=== PATIENT | female | born 1975 | race African-American/Black ===

== ENCOUNTER 2018-11-09 07:23 | Inpatient (IN) ==
[2018-11-09 08:24] LABS: Basophils % 0.5 % (0.0-0.8); Eosinophils % 0.3 % (0.00-10.9); Hematocrit 42.6 VOL% (35.7-47.0); Hemoglobin 13.7 GM/DL (12.0-16.0); Immature Granulocytes % 0.2 %; Immature Granulocytes Absolute 0.01 #; Lymphocytes # 0.5 10*3/uL (1.4-4.0); Lymphocytes % 7.9 % (21.3-54.2); Mean Corpuscular HGB Conc 32.2 GM/DL (32-36); Mean Corpuscular Hemoglobin 28 PG (27-34); Mean Corpuscular Volume 87.7 FL (87-102); Mean Platelet Volume 9.3 FL (9.6-12.0); Monocytes # 0.8 10*3/uL (0.11-0.8); Monocytes % 12.6 % (1.7-12.7); Neutrophils # 4.7 10*3/uL (1.4-7.4); Neutrophils % 78.5 % (38.7-73.9); Platelet Count 350 T/CUMM (130-400); Red Blood Count 4.86 MC/CUMM (3.8-5.5); Red Cell Distribution Width 17.5 % (9.3-17.3)
[2018-11-09] MEDS ORDERED: MUPIROCIN 2% OINT 22 GM TUBE TOP STA (08:28)
[2018-11-09 08:41] LABS: Bilirubin,Total 0.6 MG/DL (0.2-1.0); Calcium 8.7 MG/DL (8.5-10.1); Osmolality,Calculated 275.2 MOS/KG (273-304); Potassium 3.7 MMOL/L (3.5-5.1); Total Protein 7.5 G/DL (6.4-8.3)
[2018-11-09] MEDS ORDERED: MORPHINE 4 MG/1 ML VIAL IV STA (09:44)
[2018-11-09] MEDS ORDERED: ONDANSETRON 4 MG/2 ML VIAL IV STA (09:44)
[2018-11-09 11:09] LABS: Sedimentation Rate-Westergren 6 MM/HR (0-20)
[2018-11-09] MEDS ORDERED: ONDANSETRON 4 MG/2 ML VIAL IV PRN (15:11)
[2018-11-09] MEDS ORDERED: ACETAMINOPHEN 325 MG TABLET PO PRN (15:11)
[2018-11-09] MEDS ORDERED: INFLUENZA VIRUS VACCINE 0.5 ML SYRINGE IM ONE (17:26)
[2018-11-09] MEDS: METOPROLOL TARTRATE 25 MG TABLET PO SCH (20:53)
[2018-11-10 03:11] LABS: Basophils # 0.1 10*3/uL (0.0-0.2); Basophils % 0.9 % (0.0-0.8); Eosinophils % 0.2 % (0.00-10.9); Hematocrit 43.5 VOL% (35.7-47.0); Hemoglobin 13.6 GM/DL (12.0-16.0); Immature Granulocytes % 0.4 %; Immature Granulocytes Absolute 0.02 #; Lymphocytes # 0.4 10*3/uL (1.4-4.0); Lymphocytes % 7.1 % (21.3-54.2); Mean Corpuscular HGB Conc 31.3 GM/DL (32-36); Mean Corpuscular Hemoglobin 28 PG (27-34); Mean Corpuscular Volume 89.5 FL (87-102); Mean Platelet Volume 9.4 FL (9.6-12.0); Monocytes # 0.7 10*3/uL (0.11-0.8); Monocytes % 13.3 % (1.7-12.7); Neutrophils # 4.2 10*3/uL (1.4-7.4); Neutrophils % 78.1 % (38.7-73.9); Platelet Count 346 T/CUMM (130-400); Red Blood Count 4.86 MC/CUMM (3.8-5.5); Red Cell Distribution Width 17.4 % (9.3-17.3); White Blood Count 5.3 T/CUMM (4-12)
[2018-11-10 03:36] LABS: Albumin 2.9 G/DL (3.4-5.0); Bilirubin,Total 1.3 MG/DL (0.2-1.0); Osmolality,Calculated 275.1 MOS/KG (273-304); Potassium 4.2 MMOL/L (3.5-5.1); Risk Ratio 2.31; Thyroid Stimulating Hormone 2.25 uIU/ml (0.358-3.74); Total Protein 7.2 G/DL (6.4-8.3); VLDL CHOLESTEROL 8.6 MG/DL
[2018-11-10] MEDS: ASPIRIN CHEW 81 MG TABLET PO SCH (08:15)
[2018-11-10] MEDS: ENOXAPARIN 30 MG/0.3 ML SYRINGE SUBCUT SCH (08:15)
[2018-11-10] MEDS: METOPROLOL TARTRATE 25 MG TABLET PO SCH ×2 (08:15→20:19)
[2018-11-10] MEDS ORDERED: FUROSEMIDE 40 MG TABLET PO SCH (09:00)
[2018-11-10] MEDS: LISINOPRIL 2.5 MG TABLET PO SCH (11:45)
[2018-11-10] MEDS: COLLAGENASE OINT 30 GM TUBE TOP SCH (15:45)
[2018-11-10] MEDS: FUROSEMIDE 40 MG/4 ML VIAL IV SCH (16:57)
[2018-11-11 05:52] LABS: Basophils # 0.1 10*3/uL (0.0-0.2); Basophils % 1.3 % (0.0-0.8); Eosinophils % 0.4 % (0.00-10.9); Hematocrit 41.2 VOL% (35.7-47.0); Hemoglobin 13.3 GM/DL (12.0-16.0); Immature Granulocytes % 0.2 %; Immature Granulocytes Absolute 0.01 #; Lymphocytes # 0.6 10*3/uL (1.4-4.0); Lymphocytes % 12.2 % (21.3-54.2); Mean Corpuscular HGB Conc 32.3 GM/DL (32-36); Mean Corpuscular Hemoglobin 29 PG (27-34); Mean Corpuscular Volume 88.6 FL (87-102); Mean Platelet Volume 9.4 FL (9.6-12.0); Monocytes # 0.8 10*3/uL (0.11-0.8); Monocytes % 16.5 % (1.7-12.7); Neutrophils # 3.3 10*3/uL (1.4-7.4); Neutrophils % 69.4 % (38.7-73.9); Platelet Count 332 T/CUMM (130-400); Red Blood Count 4.65 MC/CUMM (3.8-5.5); Red Cell Distribution Width 17.6 % (9.3-17.3); White Blood Count 4.7 T/CUMM (4-12)
[2018-11-11 06:15] LABS: Albumin 2.7 G/DL (3.4-5.0); Bilirubin,Total 0.6 MG/DL (0.2-1.0); Calcium 8.2 MG/DL (8.5-10.1); Osmolality,Calculated 276.2 MOS/KG (273-304); Potassium 3.6 MMOL/L (3.5-5.1); Total Protein 6.5 G/DL (6.4-8.3)
[2018-11-11] MEDS ORDERED: VANCOMYCIN INJ 1,000 MG in SODIUM CHLORIDE 0.9% 250 ML IV SCH (08:00)
[2018-11-11] MEDS ORDERED: MORPHINE 4 MG/1 ML VIAL IV PRN (08:57)
[2018-11-11 09:17] LABS: Lymphocytes 5 % (20-55); Platelet Estimate Normal; Polychromasia Slight; Segmented Neutrophils 85 % (50-85); Total Cells Counted 100
[2018-11-11] MEDS: ASPIRIN CHEW 81 MG TABLET PO SCH (09:22)
[2018-11-11] MEDS: ISOSORBIDE DINITRATE 20 MG TABLET PO SCH ×3 (09:22→22:20)
[2018-11-11] MEDS: hydrALAZINE 25 MG TABLET PO SCH ×3 (09:22→22:19)
[2018-11-11] MEDS: LISINOPRIL 2.5 MG TABLET PO SCH (09:22)
[2018-11-11] MEDS: ENOXAPARIN 30 MG/0.3 ML SYRINGE SUBCUT SCH (09:22)
[2018-11-11] MEDS: cefTRIAXone 1,000 MG in SYRINGE 1 EACH IV SCH (09:23)
[2018-11-11] MEDS: METOPROLOL TARTRATE 25 MG TABLET PO SCH ×2 (09:23→22:20)
[2018-11-11] MEDS: FUROSEMIDE 40 MG/4 ML VIAL IV SCH ×2 (09:24→15:28)
[2018-11-11] MEDS: SILVER SULFADIAZINE 1% CREAM 25 GM TUBE TOP SCH (16:54)
[2018-11-11] MEDS: COLLAGENASE OINT 30 GM TUBE TOP SCH (16:54)
[2018-11-11] MEDS: VANCOMYCIN INJ 1,000 MG in SODIUM CHLORIDE 0.9% 250 ML IV SCH (20:42)
[2018-11-12 06:18] LABS: Basophils # 0.1 10*3/uL (0.0-0.2); Basophils % 1.2 % (0.0-0.8); Eosinophils % 0.7 % (0.00-10.9); Hematocrit 42.9 VOL% (35.7-47.0); Hemoglobin 13.6 GM/DL (12.0-16.0); Immature Granulocytes % 0.2 %; Immature Granulocytes Absolute 0.01 #; Lymphocytes # 0.5 10*3/uL (1.4-4.0); Lymphocytes % 11.2 % (21.3-54.2); Mean Corpuscular HGB Conc 31.7 GM/DL (32-36); Mean Corpuscular Hemoglobin 28 PG (27-34); Mean Corpuscular Volume 87.7 FL (87-102); Mean Platelet Volume 9.4 FL (9.6-12.0); Monocytes # 0.6 10*3/uL (0.11-0.8); Neutrophils # 2.9 10*3/uL (1.4-7.4); Neutrophils % 71.7 % (38.7-73.9); Platelet Count 365 T/CUMM (130-400); Red Blood Count 4.89 MC/CUMM (3.8-5.5); Red Cell Distribution Width 17.7 % (9.3-17.3)
[2018-11-12 06:39] LABS: Albumin 2.6 G/DL (3.4-5.0); Bilirubin,Total 0.7 MG/DL (0.2-1.0); Calcium 8.4 MG/DL (8.5-10.1); Osmolality,Calculated 275.8 MOS/KG (273-304); Potassium 3.5 MMOL/L (3.5-5.1); Total Protein 6.8 G/DL (6.4-8.3)
[2018-11-12] MEDS ORDERED: MAGNESIUM SULF RIDER 4 GM in PREMIX 1 EACH IV PRN (07:41)
[2018-11-12] MEDS ORDERED: MAGNESIUM SULF RIDER 2 GM in PREMIX 1 EACH IV PRN (07:41)
[2018-11-12] MEDS: ENOXAPARIN 40 MG/0.4 ML SYRINGE SUBCUT SCH (09:13)
[2018-11-12] MEDS: METOPROLOL TARTRATE 25 MG TABLET PO SCH ×3 (09:14→20:54)
[2018-11-12] MEDS: ISOSORBIDE DINITRATE 20 MG TABLET PO SCH ×3 (09:14→20:54)
[2018-11-12] MEDS: hydrALAZINE 25 MG TABLET PO SCH ×3 (09:14→20:54)
[2018-11-12] MEDS: LISINOPRIL 2.5 MG TABLET PO SCH (09:14)
[2018-11-12] MEDS: ASPIRIN CHEW 81 MG TABLET PO SCH (09:14)
[2018-11-12] MEDS: cefTRIAXone 1,000 MG in SYRINGE 1 EACH IV SCH (09:14)
[2018-11-12] MEDS: VANCOMYCIN INJ 1,000 MG in SODIUM CHLORIDE 0.9% 250 ML IV SCH (09:15)
[2018-11-12] MEDS: FUROSEMIDE 40 MG/4 ML VIAL IV SCH ×2 (09:15→15:13)
[2018-11-12] MEDS: SILVER SULFADIAZINE 1% CREAM 25 GM TUBE TOP SCH (14:57)
[2018-11-12] MEDS: COLLAGENASE OINT 30 GM TUBE TOP SCH (14:57)
[2018-11-12] MEDS: DOXYCYCLINE HYCLATE INJ 100 MG in SODIUM CHLORIDE 0.9% 100 ML IV SCH (17:45)
[2018-11-13] MEDS: DOXYCYCLINE HYCLATE INJ 100 MG in SODIUM CHLORIDE 0.9% 100 ML IV SCH (04:28)
[2018-11-13 05:49] LABS: Basophils # 0.1 10*3/uL (0.0-0.2); Basophils % 1.4 % (0.0-0.8); Eosinophils % 0.9 % (0.00-10.9); Hematocrit 39.4 VOL% (35.7-47.0); Hemoglobin 12.6 GM/DL (12.0-16.0); Immature Granulocytes % 0.2 %; Immature Granulocytes Absolute 0.01 #; Lymphocytes # 0.6 10*3/uL (1.4-4.0); Lymphocytes % 12.7 % (21.3-54.2); Mean Corpuscular Hemoglobin 28 PG (27-34); Mean Corpuscular Volume 88.1 FL (87-102); Monocytes # 0.8 10*3/uL (0.11-0.8); Neutrophils # 2.8 10*3/uL (1.4-7.4); Neutrophils % 65.8 % (38.7-73.9); Platelet Count 324 T/CUMM (130-400); Red Blood Count 4.47 MC/CUMM (3.8-5.5); Red Cell Distribution Width 17.5 % (9.3-17.3); White Blood Count 4.3 T/CUMM (4-12)
[2018-11-13 06:14] LABS: Calcium 8.1 MG/DL (8.5-10.1); Osmolality,Calculated 275.8 MOS/KG (273-304); Potassium 3.4 MMOL/L (3.5-5.1)
[2018-11-13 06:32] LABS: Anisocytosis 1+; Band Neutrophils 6 % (0-10); Eosinophils 1 % (0-10); Hypochromasia 1+; Lymphocytes 10 % (20-55); Segmented Neutrophils 72 % (50-85); Target Cells 1+; Total Cells Counted 100
[2018-11-13 06:33] LABS: Platelet Estimate Adequate
[2018-11-13] MEDS ORDERED: POTASSIUM CHLORIDE 20 MEQ TABLET PO PRN (07:27)
[2018-11-13] MEDS: FUROSEMIDE 40 MG/4 ML VIAL IV SCH ×2 (08:59→15:23)
[2018-11-13] MEDS: ISOSORBIDE DINITRATE 20 MG TABLET PO SCH ×2 (08:59→14:42)
[2018-11-13] MEDS: ENOXAPARIN 40 MG/0.4 ML SYRINGE SUBCUT SCH (08:59)
[2018-11-13] MEDS: hydrALAZINE 25 MG TABLET PO SCH ×2 (09:00→14:42)
[2018-11-13] MEDS: ASPIRIN CHEW 81 MG TABLET PO SCH (09:00)
[2018-11-13] MEDS: LISINOPRIL 2.5 MG TABLET PO SCH (09:00)
[2018-11-13] MEDS: METOPROLOL TARTRATE 25 MG TABLET PO SCH ×2 (09:00→14:42)
[2018-11-13] MEDS: COLLAGENASE OINT 30 GM TUBE TOP SCH (09:07)
[2018-11-13] MEDS: SILVER SULFADIAZINE 1% CREAM 25 GM TUBE TOP SCH (09:10)
[2018-11-13] MEDS ORDERED: POTASSIUM CHLORIDE 20 MEQ TABLET PO ONE (09:39)
[2018-11-13 11:56] VITALS: BP 94/71
== END 2018-11-13 15:56 | disposition home health service (06) | DRG 197 ==
LOC: N.ED 07:23 → N.EDINP 15:09 → SUATTDRO 15:09 → N.EDINP 17:00 → N.3E 17:17 → N.2E 11-10 18:25
PROVIDERS: ADMIT Internal Medicine; ATTEND Internal Medicine

== ENCOUNTER 2018-11-28 03:16 | Inpatient (IN) ==
[2018-11-28] MEDS ORDERED: FUROSEMIDE 40 MG/4 ML VIAL IV STA (04:02)
[2018-11-28 04:09] LABS: INR 1.1; PT Patient Result 11.9 SECS
[2018-11-28] MEDS ORDERED: SILVER SULFADIAZINE 1% CREAM 400 GM JAR TOP ONE (04:10)
[2018-11-28 04:11] LABS: Basophils # 0.1 10*3/uL (0.0-0.2); Basophils % 2.1 % (0.0-0.8); Eosinophils % 0.8 % (0.00-10.9); Hematocrit 42.3 VOL% (35.7-47.0); Hemoglobin 13.3 GM/DL (12.0-16.0); Immature Granulocytes % 0.4 %; Immature Granulocytes Absolute 0.02 #; Lymphocytes # 0.7 10*3/uL (1.4-4.0); Mean Corpuscular HGB Conc 31.4 GM/DL (32-36); Mean Corpuscular Hemoglobin 28 PG (27-34); Mean Corpuscular Volume 90.2 FL (87-102); Mean Platelet Volume 9.5 FL (9.6-12.0); Monocytes # 0.8 10*3/uL (0.11-0.8); Monocytes % 15.9 % (1.7-12.7); Neutrophils # 3.5 10*3/uL (1.4-7.4); Neutrophils % 67.8 % (38.7-73.9); Platelet Count 381 T/CUMM (130-400); Red Blood Count 4.69 MC/CUMM (3.8-5.5); Red Cell Distribution Width 16.6 % (9.3-17.3); White Blood Count 5.2 T/CUMM (4-12)
[2018-11-28] MEDS ORDERED: SILVER SULFADIAZINE 1% CREAM 25 GM TUBE TOP STA (04:13)
[2018-11-28 04:25] LABS: Albumin 3.1 G/DL (3.4-5.0); Calcium 9.1 MG/DL (8.5-10.1); Osmolality,Calculated 284.3 MOS/KG (273-304); Potassium 3.8 MMOL/L (3.5-5.1); Total Protein 7.2 G/DL (6.4-8.3)
[2018-11-28] MEDS ORDERED: MORPHINE 4 MG/1 ML VIAL IV STA (04:31)
[2018-11-28] MEDS ORDERED: MORPHINE 4 MG/1 ML VIAL ONE (04:32)
[2018-11-28 05:08] LABS: Apearance,Urine Slightly Hazy (Clear); Bacteria,Urine Occasional /HPF (Few); Bilirubin,Urine Negative (Negative); Blood, Urine Negative (Negative); Glucose,Urine (UA) Negative (Negative); Ketones,Urine Negative (Negative); Mucus,Urine Occasional /LPF (Occasional); Nitrite,Urine Negative (Negative); Protein,Urine 100 MG/DL; RBC,Urine 2 /HPF (0-4); Squamous Epithelial Cell,Urine Few /HPF (0-10); Urine Color Yellow (Yellow); Urine Specific Gravity 1.019 (1.001-1.035); WBC,Urine 1 /HPF (0-6)
[2018-11-28 06:27] LABS: Hypochromasia 1+; Lymphocytes 15 % (20-55); Platelet Estimate Adequate; Segmented Neutrophils 67 % (50-85); Total Cells Counted 100
[2018-11-28] MEDS ORDERED: ONDANSETRON 4 MG/2 ML VIAL IV PRN (06:43)
[2018-11-28] MEDS ORDERED: ACETAMINOPHEN 325 MG TABLET PO PRN (06:43)
[2018-11-28] MEDS ORDERED: METOPROLOL TARTRATE 5 MG/5 ML VIAL IV PRN (06:45)
[2018-11-28] MEDS: FUROSEMIDE 40 MG/4 ML VIAL IV SCH ×2 (07:48→16:39)
[2018-11-28] MEDS: ENOXAPARIN 40 MG/0.4 ML SYRINGE SUBCUT SCH (07:49)
[2018-11-28] MEDS: ASPIRIN CHEW 81 MG TABLET PO SCH ×2 (07:52→11:47)
[2018-11-28] MEDS: POTASSIUM CHLORIDE 20 MEQ TABLET PO SCH ×2 (07:52→11:48)
[2018-11-28] MEDS: LISINOPRIL 2.5 MG TABLET PO SCH ×2 (07:52→11:48)
[2018-11-28] MEDS: METOPROLOL TARTRATE 25 MG TABLET PO SCH ×3 (08:02→21:44)
[2018-11-28 08:22] LABS: CKMB % 3.2 %; Troponin I 0.027 NG/ML (0.00-0.045)
[2018-11-28] MEDS ORDERED: hydrALAZINE 25 MG TABLET PO SCH (09:00)
[2018-11-28] MEDS ORDERED: ISOSORBIDE DINITRATE 20 MG TABLET PO SCH (09:00)
[2018-11-28] MEDS ORDERED: POTASSIUM CHLORIDE 20 MEQ TABLET PO ONE (13:36)
[2018-11-28] MEDS ORDERED: MAGNESIUM SULF RIDER 2 GM in PREMIX 1 EACH IV PRN (13:36)
[2018-11-28] MEDS ORDERED: MAGNESIUM SULF RIDER 4 GM in PREMIX 1 EACH IV PRN (13:36)
[2018-11-28 14:03] LABS: HIV Antigen/Antibody Result Nonreactive (Nonreactive)
[2018-11-28] MEDS: SPIRONOLACTONE 25 MG TABLET PO SCH (14:23)
[2018-11-28] MEDS: SERTRALINE 25 MG TABLET PO SCH (14:25)
[2018-11-28 15:15] LABS: CKMB % 3.3 %; Troponin I 0.019 NG/ML (0.00-0.045)
[2018-11-28] MEDS: AMPICILLIN/SULBACTAM 3,000 MG in SODIUM CHLORIDE 0.9% 100 ML IV SCH ×3 (16:40→23:45)
[2018-11-29] MEDS: AMPICILLIN/SULBACTAM 3,000 MG in SODIUM CHLORIDE 0.9% 100 ML IV SCH ×5 (02:20→22:08)
[2018-11-29 03:35] LABS: Basophils # 0.1 10*3/uL (0.0-0.2); Basophils % 2.5 % (0.0-0.8); Eosinophils % 0.9 % (0.00-10.9); Hematocrit 41.3 VOL% (35.7-47.0); Hemoglobin 12.9 GM/DL (12.0-16.0); Immature Granulocytes % 0.5 %; Immature Granulocytes Absolute 0.02 #; Lymphocytes # 0.6 10*3/uL (1.4-4.0); Lymphocytes % 12.8 % (21.3-54.2); Mean Corpuscular HGB Conc 31.2 GM/DL (32-36); Mean Corpuscular Hemoglobin 28 PG (27-34); Mean Corpuscular Volume 90.2 FL (87-102); Mean Platelet Volume 9.8 FL (9.6-12.0); Monocytes # 0.8 10*3/uL (0.11-0.8); Neutrophils # 2.9 10*3/uL (1.4-7.4); Neutrophils % 65.3 % (38.7-73.9); Platelet Count 371 T/CUMM (130-400); Red Blood Count 4.58 MC/CUMM (3.8-5.5); Red Cell Distribution Width 16.8 % (9.3-17.3); White Blood Count 4.4 T/CUMM (4-12)
[2018-11-29 04:01] LABS: Eosinophils 2 % (0-10); Lymphocytes 13 % (20-55); Platelet Estimate Decreased; Segmented Neutrophils 77 % (50-85); Total Cells Counted 100
[2018-11-29 04:02] LABS: Polychromasia Few
[2018-11-29 04:15] LABS: Albumin 2.9 G/DL (3.4-5.0); Bilirubin,Total 1.5 MG/DL (0.2-1.0); Calcium 8.6 MG/DL (8.5-10.1); Osmolality,Calculated 277.7 MOS/KG (273-304); Thyroid Stimulating Hormone 1.8 uIU/ml (0.358-3.74); Total Protein 7.3 G/DL (6.4-8.3)
[2018-11-29] MEDS: SPIRONOLACTONE 25 MG TABLET PO SCH (08:38)
[2018-11-29] MEDS: METOPROLOL SUCCINATE XL 25 MG TABLET PO SCH (08:38)
[2018-11-29] MEDS: SERTRALINE 25 MG TABLET PO SCH (08:38)
[2018-11-29] MEDS: POTASSIUM CHLORIDE 20 MEQ TABLET PO SCH (08:39)
[2018-11-29] MEDS: LISINOPRIL 2.5 MG TABLET PO SCH (08:39)
[2018-11-29] MEDS: ASPIRIN EC 81 MG TABLET PO SCH (08:39)
[2018-11-29] MEDS: FUROSEMIDE 40 MG/4 ML VIAL IV SCH ×2 (08:40→16:29)
[2018-11-29] MEDS: ENOXAPARIN 40 MG/0.4 ML SYRINGE SUBCUT SCH (08:47)
[2018-11-29] MEDS: CLOTRIMAZOLE/BETAMETHASONE CREAM 15 GM TUBE TOP SCH ×2 (16:33→22:09)
[2018-11-29] MEDS: SACUBITRIL/VALSARTAN 49-51 MG TABLET PO SCH (22:09)
[2018-11-30] MEDS: AMPICILLIN/SULBACTAM 3,000 MG in SODIUM CHLORIDE 0.9% 100 ML IV SCH ×4 (03:38→21:23)
[2018-11-30 03:54] LABS: Basophils # 0.1 10*3/uL (0.0-0.2); Eosinophils % 1.2 % (0.00-10.9); Hematocrit 41.3 VOL% (35.7-47.0); Hemoglobin 13.1 GM/DL (12.0-16.0); Immature Granulocytes % 0.3 %; Immature Granulocytes Absolute 0.01 #; Lymphocytes # 0.5 10*3/uL (1.4-4.0); Lymphocytes % 15.5 % (21.3-54.2); Mean Corpuscular HGB Conc 31.7 GM/DL (32-36); Mean Corpuscular Hemoglobin 28 PG (27-34); Mean Platelet Volume 10.1 FL (9.6-12.0); Monocytes # 0.5 10*3/uL (0.11-0.8); Monocytes % 14.3 % (1.7-12.7); Neutrophils # 2.2 10*3/uL (1.4-7.4); Neutrophils % 65.7 % (38.7-73.9); Platelet Count 371 T/CUMM (130-400); Red Blood Count 4.64 MC/CUMM (3.8-5.5); Red Cell Distribution Width 16.5 % (9.3-17.3); White Blood Count 3.3 T/CUMM (4-12)
[2018-11-30 04:13] LABS: Calcium 8.5 MG/DL (8.5-10.1); Osmolality,Calculated 279.7 MOS/KG (273-304); Potassium 3.7 MMOL/L (3.5-5.1)
[2018-11-30 04:15] LABS: Calcium 9.3 MG/DL (8.5-10.1); Osmolality,Calculated 280.5 MOS/KG (273-304); Potassium 4.1 MMOL/L (3.5-5.1)
[2018-11-30 05:00] LABS: Band Neutrophils 1 % (0-10); Eosinophils 1 % (0-10); Hypochromasia 1+; Lymphocytes 12 % (20-55); Platelet Estimate Adequate; Segmented Neutrophils 74 % (50-85); Total Cells Counted 100
[2018-11-30] MEDS ORDERED: FUROSEMIDE 40 MG/4 ML VIAL IV SCH (08:41)
[2018-11-30] MEDS: SPIRONOLACTONE 25 MG TABLET PO SCH (08:56)
[2018-11-30] MEDS: METOPROLOL SUCCINATE XL 25 MG TABLET PO SCH (08:59)
[2018-11-30] MEDS: FUROSEMIDE 40 MG/4 ML VIAL IV SCH (09:00)
[2018-11-30] MEDS: SACUBITRIL/VALSARTAN 49-51 MG TABLET PO SCH ×2 (09:02→21:27)
[2018-11-30] MEDS: POTASSIUM CHLORIDE 20 MEQ TABLET PO SCH (09:02)
[2018-11-30] MEDS: ENOXAPARIN 40 MG/0.4 ML SYRINGE SUBCUT SCH (09:02)
[2018-11-30] MEDS: SERTRALINE 25 MG TABLET PO SCH (09:02)
[2018-11-30] MEDS: ASPIRIN EC 81 MG TABLET PO SCH (09:02)
[2018-11-30] MEDS: CLOTRIMAZOLE/BETAMETHASONE CREAM 15 GM TUBE TOP SCH ×2 (09:03→21:30)
[2018-11-30] MEDS ORDERED: CARVEDILOL 3.125 MG TABLET PO SCH (14:00)
[2018-11-30] MEDS ORDERED: FUROSEMIDE 20 MG/2 ML VIAL IV ONE (16:00)
[2018-12-01] MEDS: AMPICILLIN/SULBACTAM 3,000 MG in SODIUM CHLORIDE 0.9% 100 ML IV SCH ×2 (03:06→09:00)
[2018-12-01 03:15] LABS: Basophils # 0.1 10*3/uL (0.0-0.2); Basophils % 2.4 % (0.0-0.8); Eosinophils # 0.1 10*3/uL (0.0-0.87); Eosinophils % 2.6 % (0.00-10.9); Hematocrit 41.8 VOL% (35.7-47.0); Immature Granulocytes % 0.3 %; Immature Granulocytes Absolute 0.01 #; Lymphocytes # 0.6 10*3/uL (1.4-4.0); Lymphocytes % 15.1 % (21.3-54.2); Mean Corpuscular HGB Conc 31.1 GM/DL (32-36); Mean Corpuscular Hemoglobin 28 PG (27-34); Mean Corpuscular Volume 89.1 FL (87-102); Mean Platelet Volume 9.8 FL (9.6-12.0); Monocytes # 0.6 10*3/uL (0.11-0.8); Monocytes % 16.4 % (1.7-12.7); Neutrophils # 2.4 10*3/uL (1.4-7.4); Neutrophils % 63.2 % (38.7-73.9); Platelet Count 400 T/CUMM (130-400); Red Blood Count 4.69 MC/CUMM (3.8-5.5); Red Cell Distribution Width 16.5 % (9.3-17.3); White Blood Count 3.8 T/CUMM (4-12)
[2018-12-01 03:24] LABS: Calcium 8.2 MG/DL (8.5-10.1); Osmolality,Calculated 283.3 MOS/KG (273-304); Potassium 3.6 MMOL/L (3.5-5.1)
[2018-12-01 04:42] LABS: Anisocytosis Slight; Band Neutrophils 8 % (0-10); Eosinophils 2 % (0-10); Lymphocytes 13 % (20-55); Macrocytosis Slight; Platelet Estimate Normal; Segmented Neutrophils 61 % (50-85); Total Cells Counted 100
[2018-12-01 08:27] VITALS: BP 134/82
[2018-12-01] MEDS ORDERED: FUROSEMIDE 40 MG/4 ML VIAL IV SCH (09:00)
[2018-12-01] MEDS ORDERED: FUROSEMIDE 40 MG TABLET PO SCH (09:00)
[2018-12-01] MEDS ORDERED: BISOPROLOL 5 MG TABLET PO SCH (09:00)
[2018-12-01] MEDS: ENOXAPARIN 40 MG/0.4 ML SYRINGE SUBCUT SCH (09:03)
[2018-12-01] MEDS: ASPIRIN EC 81 MG TABLET PO SCH (09:03)
[2018-12-01] MEDS: POTASSIUM CHLORIDE 20 MEQ TABLET PO SCH (09:03)
[2018-12-01] MEDS: SERTRALINE 25 MG TABLET PO SCH (09:03)
[2018-12-01] MEDS: SACUBITRIL/VALSARTAN 49-51 MG TABLET PO SCH (09:03)
[2018-12-01] MEDS: CLOTRIMAZOLE/BETAMETHASONE CREAM 15 GM TUBE TOP SCH (09:04)
== END 2018-12-01 13:00 | disposition home health service (06) | DRG 194 ==
LOC: N.ED 03:16 → N.EDINP 06:18 → N.TELES 06:46
PROVIDERS: ADMIT Internal Medicine; ATTEND Internal Medicine

== ENCOUNTER 2018-12-09 07:41 | Inpatient (IN) ==
[2018-12-09 09:52] LABS: Basophils # 0.1 10*3/uL (0.0-0.2); Eosinophils # 0.1 10*3/uL (0.0-0.87); Hematocrit 45.7 VOL% (35.7-47.0); Hemoglobin 14.3 GM/DL (12.0-16.0); Immature Granulocytes % 0.6 %; Immature Granulocytes Absolute 0.03 #; Lymphocytes # 0.6 10*3/uL (1.4-4.0); Lymphocytes % 11.9 % (21.3-54.2); Mean Corpuscular HGB Conc 31.3 GM/DL (32-36); Mean Corpuscular Hemoglobin 28 PG (27-34); Mean Corpuscular Volume 89.3 FL (87-102); Mean Platelet Volume 10.7 FL (9.6-12.0); Monocytes # 0.8 10*3/uL (0.11-0.8); Monocytes % 15.3 % (1.7-12.7); Neutrophils # 3.5 10*3/uL (1.4-7.4); Neutrophils % 69.2 % (38.7-73.9); Platelet Count 372 T/CUMM (130-400); Red Blood Count 5.12 MC/CUMM (3.8-5.5); Red Cell Distribution Width 16.5 % (9.3-17.3)
[2018-12-09 09:57] LABS: INR 1.2; PT Patient Result 13.4 SECS
[2018-12-09] MEDS ORDERED: ALBUTEROL/IPRATROPIUM 3 ML NEB RESP TX STA (10:02)
[2018-12-09] MEDS ORDERED: FUROSEMIDE 100 MG/10 ML VIAL IV STA (10:02)
[2018-12-09 10:05] LABS: Bilirubin,Total 0.7 MG/DL (0.2-1.0); Calcium 9.1 MG/DL (8.5-10.1); Osmolality,Calculated 284.4 MOS/KG (273-304); Potassium 4.2 MMOL/L (3.5-5.1); Total Protein 7.3 G/DL (6.4-8.3)
[2018-12-09] MEDS ORDERED: ONDANSETRON 4 MG/2 ML VIAL IV STA (10:50)
[2018-12-09] MEDS ORDERED: MORPHINE 4 MG/1 ML VIAL IV STA (10:50)
[2018-12-09] MEDS ORDERED: ONDANSETRON 4 MG/2 ML VIAL ONE (10:51)
[2018-12-09] MEDS ORDERED: FUROSEMIDE 40 MG/4 ML VIAL ONE (10:51)
[2018-12-09] MEDS ORDERED: MORPHINE 4 MG/1 ML VIAL ONE (10:52)
[2018-12-09] MEDS ORDERED: guaiFENesin/DM ER 600-30 MG TABLET PO PRN (13:14)
[2018-12-09] MEDS ORDERED: ONDANSETRON 4 MG/2 ML VIAL IV PRN (13:14)
[2018-12-09] MEDS ORDERED: BISACODYL 5 MG TABLET PO PRN (13:14)
[2018-12-09] MEDS ORDERED: POTASSIUM CHLORIDE 20 MEQ TABLET PO PRN (13:23)
[2018-12-09] MEDS: ALBUTEROL/IPRATROPIUM 3 ML NEB RESP TX SCH ×3 (16:44→23:35)
[2018-12-09 16:51] LABS: Pt O2 Delivery Device Room Air
[2018-12-09 17:19] LABS: ABG Base Excess -4.5 MMOL/L (-2.5-2.5); ABG Oxygen Saturation 66.3 % (95-100); ABG PCO2 39.8 MM HG (35-48); ABG PH 7.333 (7.35-7.45); ABG TCO2 18.1 MMOL/L (23-27)
[2018-12-09 17:25] LABS: ABG PO2 36.5 MM HG (80-95)
[2018-12-09] MEDS: FUROSEMIDE 40 MG/4 ML VIAL IV SCH (17:33)
[2018-12-09] MEDS: PIPERACILLIN/TAZOBACTAM 3,375 MG in SODIUM CHLORIDE 0.9% 100 ML IV SCH (17:33)
[2018-12-09 21:20] LABS: Allen Test Positive
[2018-12-09 21:24] LABS: ABG Base Excess -3.7 MMOL/L (-2.5-2.5); ABG HCO3 22.6 MMOL/L (20-26); ABG Oxygen Saturation 88.4 % (95-100); ABG PCO2 45.6 MM HG (35-48); ABG PH 7.313 (7.35-7.45); ABG PO2 62.2 MM HG (80-95)
[2018-12-09] MEDS: ENOXAPARIN 40 MG/0.4 ML SYRINGE SUBCUT SCH (22:38)
[2018-12-09] MEDS: VANCOMYCIN INJ 1,000 MG in SODIUM CHLORIDE 0.9% 250 ML IV SCH (22:39)
[2018-12-10] MEDS: PIPERACILLIN/TAZOBACTAM 3,375 MG in SODIUM CHLORIDE 0.9% 100 ML IV SCH ×3 (01:18→17:51)
[2018-12-10] MEDS: ALBUTEROL/IPRATROPIUM 3 ML NEB RESP TX SCH ×6 (03:10→22:53)
[2018-12-10 05:48] LABS: Calcium 9.3 MG/DL (8.5-10.1); Osmolality,Calculated 281.5 MOS/KG (273-304); Potassium 4.6 MMOL/L (3.5-5.1)
[2018-12-10 05:55] LABS: Basophils # 0.1 10*3/uL (0.0-0.2); Basophils % 1.4 % (0.0-0.8); Eosinophils # 0.1 10*3/uL (0.0-0.87); Eosinophils % 0.9 % (0.00-10.9); Hematocrit 44.5 VOL% (35.7-47.0); Hemoglobin 13.5 GM/DL (12.0-16.0); Immature Granulocytes % 0.5 %; Immature Granulocytes Absolute 0.03 #; Lymphocytes # 0.7 10*3/uL (1.4-4.0); Lymphocytes % 10.4 % (21.3-54.2); Mean Corpuscular HGB Conc 30.3 GM/DL (32-36); Mean Corpuscular Hemoglobin 28 PG (27-34); Mean Corpuscular Volume 92.9 FL (87-102); Mean Platelet Volume 10.6 FL (9.6-12.0); Monocytes % 15.7 % (1.7-12.7); Neutrophils # 4.5 10*3/uL (1.4-7.4); Neutrophils % 71.1 % (38.7-73.9); Platelet Count 315 T/CUMM (130-400); Red Blood Count 4.79 MC/CUMM (3.8-5.5); Red Cell Distribution Width 16.5 % (9.3-17.3); White Blood Count 6.3 T/CUMM (4-12)
[2018-12-10 06:25] LABS: Hypochromasia 1+; Lymphocytes 12 % (20-55); Ovalocytes Slight; Platelet Estimate Adequate; Segmented Neutrophils 74 % (50-85); Total Cells Counted 100
[2018-12-10] MEDS: PANTOPRAZOLE 40 MG TABLET PO SCH (08:18)
[2018-12-10] MEDS: FUROSEMIDE 40 MG/4 ML VIAL IV SCH ×2 (08:19→17:52)
[2018-12-10] MEDS: VANCOMYCIN INJ 1,000 MG in SODIUM CHLORIDE 0.9% 250 ML IV SCH (11:33)
[2018-12-10] MEDS ORDERED: BISOPROLOL 5 MG TABLET PO SCH (13:00)
[2018-12-10] MEDS: ASPIRIN EC 81 MG TABLET PO SCH (13:31)
[2018-12-10] MEDS: SPIRONOLACTONE 25 MG TABLET PO SCH (17:52)
[2018-12-11] MEDS: SACUBITRIL/VALSARTAN 49-51 MG TABLET PO SCH ×3 (00:12→23:02)
[2018-12-11] MEDS: ENOXAPARIN 40 MG/0.4 ML SYRINGE SUBCUT SCH ×2 (00:12→23:02)
[2018-12-11] MEDS: SERTRALINE 25 MG TABLET PO SCH ×2 (00:12→23:02)
[2018-12-11] MEDS: VANCOMYCIN INJ 1,000 MG in SODIUM CHLORIDE 0.9% 250 ML IV SCH ×2 (00:49→09:27)
[2018-12-11] MEDS: ALBUTEROL/IPRATROPIUM 3 ML NEB RESP TX SCH ×5 (02:52→20:27)
[2018-12-11] MEDS: PIPERACILLIN/TAZOBACTAM 3,375 MG in SODIUM CHLORIDE 0.9% 100 ML IV SCH ×3 (04:00→23:01)
[2018-12-11] MEDS: ACETAMINOPHEN 325 MG TABLET PO PRN (05:50)
[2018-12-11 06:04] LABS: Basophils # 0.1 10*3/uL (0.0-0.2); Basophils % 1.6 % (0.0-0.8); Eosinophils # 0.1 10*3/uL (0.0-0.87); Eosinophils % 0.8 % (0.00-10.9); Hematocrit 42.2 VOL% (35.7-47.0); Hemoglobin 12.9 GM/DL (12.0-16.0); Immature Granulocytes % 0.2 %; Immature Granulocytes Absolute 0.01 #; Lymphocytes # 0.7 10*3/uL (1.4-4.0); Lymphocytes % 10.7 % (21.3-54.2); Mean Corpuscular HGB Conc 30.6 GM/DL (32-36); Mean Corpuscular Hemoglobin 28 PG (27-34); Mean Corpuscular Volume 92.3 FL (87-102); Mean Platelet Volume 10.6 FL (9.6-12.0); Monocytes # 1.1 10*3/uL (0.11-0.8); Neutrophils # 4.2 10*3/uL (1.4-7.4); Neutrophils % 68.7 % (38.7-73.9); Platelet Count 277 T/CUMM (130-400); Red Blood Count 4.57 MC/CUMM (3.8-5.5); Red Cell Distribution Width 16.6 % (9.3-17.3); White Blood Count 6.2 T/CUMM (4-12)
[2018-12-11 06:20] LABS: Calcium 8.4 MG/DL (8.5-10.1); Potassium 4.8 MMOL/L (3.5-5.1)
[2018-12-11 07:03] LABS: Eosinophils 3 % (0-10); Hypochromasia 1+; Lymphocytes 8 % (20-55); Platelet Estimate Adequate; Segmented Neutrophils 77 % (50-85); Total Cells Counted 100
[2018-12-11] MEDS ORDERED: ESCITALOPRAM 10 MG TABLET PO SCH (09:00)
[2018-12-11] MEDS: SPIRONOLACTONE 25 MG TABLET PO SCH (09:25)
[2018-12-11] MEDS: METOPROLOL SUCCINATE XL 25 MG TABLET PO SCH (09:25)
[2018-12-11] MEDS: ASPIRIN EC 81 MG TABLET PO SCH (09:25)
[2018-12-11] MEDS: PANTOPRAZOLE 40 MG TABLET PO SCH (09:25)
[2018-12-11] MEDS: VENLAFAXINE 37.5 MG TABLET PO SCH (09:25)
[2018-12-11] MEDS: FUROSEMIDE 40 MG/4 ML VIAL IV SCH ×2 (09:27→16:21)
[2018-12-12] MEDS: ALBUTEROL/IPRATROPIUM 3 ML NEB RESP TX SCH ×6 (00:26→20:08)
[2018-12-12 05:06] LABS: Basophils # 0.1 10*3/uL (0.0-0.2); Basophils % 2.3 % (0.0-0.8); Eosinophils # 0.1 10*3/uL (0.0-0.87); Eosinophils % 0.9 % (0.00-10.9); Hemoglobin 13.3 GM/DL (12.0-16.0); Immature Granulocytes % 0.2 %; Immature Granulocytes Absolute 0.01 #; Lymphocytes # 0.5 10*3/uL (1.4-4.0); Lymphocytes % 9.2 % (21.3-54.2); Mean Corpuscular HGB Conc 30.9 GM/DL (32-36); Mean Corpuscular Hemoglobin 28 PG (27-34); Mean Corpuscular Volume 90.9 FL (87-102); Mean Platelet Volume 10.6 FL (9.6-12.0); Monocytes # 1.1 10*3/uL (0.11-0.8); Monocytes % 18.6 % (1.7-12.7); Neutrophils # 3.9 10*3/uL (1.4-7.4); Neutrophils % 68.8 % (38.7-73.9); Platelet Count 282 T/CUMM (130-400); Red Blood Count 4.73 MC/CUMM (3.8-5.5); Red Cell Distribution Width 16.6 % (9.3-17.3); White Blood Count 5.6 T/CUMM (4-12)
[2018-12-12 05:34] LABS: Calcium 8.3 MG/DL (8.5-10.1); Osmolality,Calculated 280.8 MOS/KG (273-304); Potassium 4.8 MMOL/L (3.5-5.1)
[2018-12-12 05:43] LABS: Eosinophils 1 % (0-10); Lymphocytes 5 % (20-55); Segmented Neutrophils 71 % (50-85); Total Cells Counted 100
[2018-12-12 05:44] LABS: Hypochromasia 1+; Platelet Estimate Adequate
[2018-12-12] MEDS: PIPERACILLIN/TAZOBACTAM 3,375 MG in SODIUM CHLORIDE 0.9% 100 ML IV SCH ×3 (06:00→21:46)
[2018-12-12] MEDS: SACUBITRIL/VALSARTAN 49-51 MG TABLET PO SCH (08:35)
[2018-12-12] MEDS: METOPROLOL SUCCINATE XL 25 MG TABLET PO SCH (08:35)
[2018-12-12] MEDS: ASPIRIN EC 81 MG TABLET PO SCH (08:35)
[2018-12-12] MEDS: PANTOPRAZOLE 40 MG TABLET PO SCH (08:35)
[2018-12-12] MEDS: VENLAFAXINE 37.5 MG TABLET PO SCH (08:35)
[2018-12-12] MEDS: FUROSEMIDE 40 MG/4 ML VIAL IV SCH (08:35)
[2018-12-12] MEDS ORDERED: SODIUM CHLORIDE 0.45% 1,000 ML IV SCH (10:00)
[2018-12-12] MEDS: ENOXAPARIN 30 MG/0.3 ML SYRINGE SUBCUT SCH (11:20)
[2018-12-12] MEDS: SERTRALINE 25 MG TABLET PO SCH (21:46)
[2018-12-13] MEDS: ALBUTEROL/IPRATROPIUM 3 ML NEB RESP TX SCH ×7 (00:12→23:45)
[2018-12-13 04:38] LABS: Basophils # 0.2 10*3/uL (0.0-0.2); Basophils % 2.5 % (0.0-0.8); Eosinophils % 0.3 % (0.00-10.9); Hematocrit 46.7 VOL% (35.7-47.0); Hemoglobin 14.5 GM/DL (12.0-16.0); Immature Granulocytes % 0.5 %; Immature Granulocytes Absolute 0.03 #; Lymphocytes # 0.5 10*3/uL (1.4-4.0); Lymphocytes % 7.2 % (21.3-54.2); Mean Corpuscular Hemoglobin 28 PG (27-34); Mean Corpuscular Volume 90.9 FL (87-102); Mean Platelet Volume 10.4 FL (9.6-12.0); Monocytes # 1.3 10*3/uL (0.11-0.8); Monocytes % 19.8 % (1.7-12.7); NRBC # 0.02 10*3/uL; Neutrophils # 4.6 10*3/uL (1.4-7.4); Neutrophils % 69.7 % (38.7-73.9); Platelet Count 339 T/CUMM (130-400); Red Blood Count 5.14 MC/CUMM (3.8-5.5); Red Cell Distribution Width 17.2 % (9.3-17.3); White Blood Count 6.5 T/CUMM (4-12)
[2018-12-13] MEDS ORDERED: SODIUM CHLORIDE 0.9% 500 ML IV ONE (04:55)
[2018-12-13 05:00] LABS: Band Neutrophils 1 % (0-10); Hypochromasia 1+; Lymphocytes 9 % (20-55); Segmented Neutrophils 75 % (50-85); Target Cells Slight; Total Cells Counted 100
[2018-12-13 05:01] LABS: Microcytosis 1+
[2018-12-13] MEDS: PIPERACILLIN/TAZOBACTAM 3,375 MG in SODIUM CHLORIDE 0.9% 100 ML IV SCH ×3 (05:05→23:18)
[2018-12-13 06:38] LABS: Calcium 8.9 MG/DL (8.5-10.1); Osmolality,Calculated 280.8 MOS/KG (273-304); Potassium 5.5 MMOL/L (3.5-5.1)
[2018-12-13] MEDS: METOPROLOL SUCCINATE XL 25 MG TABLET PO SCH (08:59)
[2018-12-13] MEDS: VENLAFAXINE 37.5 MG TABLET PO SCH (09:55)
[2018-12-13] MEDS: PANTOPRAZOLE 40 MG TABLET PO SCH (09:55)
[2018-12-13] MEDS: ENOXAPARIN 30 MG/0.3 ML SYRINGE SUBCUT SCH (09:55)
[2018-12-13] MEDS: ASPIRIN EC 81 MG TABLET PO SCH (09:55)
[2018-12-13] MEDS ORDERED: SODIUM POLYSTYRENE SULFATE 15 GM/60 ML BOTTLE PO STA (11:15)
[2018-12-13] MEDS ORDERED: SODIUM CHLORIDE 0.45% 1,000 ML IV SCH (11:30)
[2018-12-13 14:40] LABS: Amorphous Crystals,Urine Occasional /HPF (Few); Apearance,Urine CLOUDY (Clear); Bilirubin,Urine Negative (Negative); Blood, Urine Negative (Negative); Calcium Oxalate Crystals,Urine Occasional /HPF (Few); Glucose,Urine (UA) Negative (Negative); Ketones,Urine 5 mg/dL (Negative); Nitrite,Urine Negative (Negative); Protein,Urine 100 MG/DL; Squamous Epithelial Cell,Urine Occasional /HPF (0-10); Urine Specific Gravity 1.024 (1.001-1.035); Urine Urobilinogen < 2.0 EU/DL (0.2-1.0); WBC,Urine 4 /HPF (0-6)
[2018-12-13 14:41] LABS: Urine Color Yellow (Yellow)
[2018-12-13] MEDS: MIDODRINE 5 MG TABLET PO SCH ×2 (15:27→21:26)
[2018-12-13 16:22] LABS: Calcium 8.4 MG/DL (8.5-10.1); Osmolality,Calculated 282.8 MOS/KG (273-304); Potassium 5.5 MMOL/L (3.5-5.1)
[2018-12-13] MEDS: SODIUM POLYSTYRENE SULFATE 15 GM/60 ML BOTTLE PO SCH (19:03)
[2018-12-13] MEDS: SERTRALINE 25 MG TABLET PO SCH (21:26)
[2018-12-13] MEDS: METOPROLOL TARTRATE 25 MG TABLET PO SCH (22:00)
[2018-12-14] MEDS: SODIUM POLYSTYRENE SULFATE 15 GM/60 ML BOTTLE PO SCH ×4 (02:00→13:59)
[2018-12-14] MEDS: PIPERACILLIN/TAZOBACTAM 3,375 MG in SODIUM CHLORIDE 0.9% 100 ML IV SCH ×3 (03:00→21:20)
[2018-12-14] MEDS: ALBUTEROL/IPRATROPIUM 3 ML NEB RESP TX SCH ×6 (03:59→23:15)
[2018-12-14 04:07] LABS: Basophils # 0.1 10*3/uL (0.0-0.2); Basophils % 1.7 % (0.0-0.8); Eosinophils # 0.1 10*3/uL (0.0-0.87); Eosinophils % 0.7 % (0.00-10.9); Hematocrit 41.1 VOL% (35.7-47.0); Hemoglobin 12.8 GM/DL (12.0-16.0); Immature Granulocytes % 0.3 %; Immature Granulocytes Absolute 0.02 #; Lymphocytes # 0.5 10*3/uL (1.4-4.0); Mean Corpuscular HGB Conc 31.1 GM/DL (32-36); Mean Corpuscular Hemoglobin 28 PG (27-34); Mean Corpuscular Volume 89.9 FL (87-102); Mean Platelet Volume 10.1 FL (9.6-12.0); Monocytes # 1.4 10*3/uL (0.11-0.8); Monocytes % 19.2 % (1.7-12.7); Neutrophils # 5.2 10*3/uL (1.4-7.4); Neutrophils % 71.1 % (38.7-73.9); Platelet Count 300 T/CUMM (130-400); Red Blood Count 4.57 MC/CUMM (3.8-5.5); White Blood Count 7.2 T/CUMM (4-12)
[2018-12-14 04:30] LABS: Calcium 8.4 MG/DL (8.5-10.1); Osmolality,Calculated 288.4 MOS/KG (273-304); Potassium 5.1 MMOL/L (3.5-5.1)
[2018-12-14 04:51] LABS: Band Neutrophils 3 % (0-10); Hypochromasia 2+; Lymphocytes 6 % (20-55); Platelet Estimate Normal; Segmented Neutrophils 71 % (50-85); Total Cells Counted 100
[2018-12-14] MEDS: MIDODRINE 5 MG TABLET PO SCH ×3 (08:57→21:34)
[2018-12-14] MEDS: ACETAMINOPHEN 325 MG TABLET PO PRN (08:58)
[2018-12-14] MEDS: ASPIRIN EC 81 MG TABLET PO SCH (08:58)
[2018-12-14] MEDS: PANTOPRAZOLE 40 MG TABLET PO SCH (08:58)
[2018-12-14] MEDS: METOPROLOL TARTRATE 25 MG TABLET PO SCH ×2 (08:59→21:19)
[2018-12-14] MEDS: ENOXAPARIN 30 MG/0.3 ML SYRINGE SUBCUT SCH (09:00)
[2018-12-14] MEDS: VENLAFAXINE 37.5 MG TABLET PO SCH (09:09)
[2018-12-14] MEDS: ASCORBIC ACID 500 MG TABLET PO SCH ×2 (14:11→21:19)
[2018-12-14] MEDS: DOBUTamine 500 MG/250 ML PREMIX IV SCH (14:13)
[2018-12-14] MEDS: FUROSEMIDE 40 MG/4 ML VIAL IV SCH (21:19)
[2018-12-14] MEDS: SERTRALINE 25 MG TABLET PO SCH (21:19)
[2018-12-15] MEDS: ALBUTEROL/IPRATROPIUM 3 ML NEB RESP TX SCH ×5 (03:20→20:12)
[2018-12-15 04:27] LABS: Basophils # 0.1 10*3/uL (0.0-0.2); Basophils % 1.1 % (0.0-0.8); Eosinophils # 0.1 10*3/uL (0.0-0.87); Hematocrit 37.5 VOL% (35.7-47.0); Hemoglobin 11.7 GM/DL (12.0-16.0); Immature Granulocytes % 0.8 %; Immature Granulocytes Absolute 0.05 #; Lymphocytes # 0.4 10*3/uL (1.4-4.0); Lymphocytes % 6.1 % (21.3-54.2); Mean Corpuscular HGB Conc 31.2 GM/DL (32-36); Mean Corpuscular Hemoglobin 28 PG (27-34); Mean Corpuscular Volume 90.4 FL (87-102); Mean Platelet Volume 9.8 FL (9.6-12.0); Monocytes % 14.7 % (1.7-12.7); Neutrophils % 75.3 % (38.7-73.9); Platelet Count 216 T/CUMM (130-400); Red Blood Count 4.15 MC/CUMM (3.8-5.5); White Blood Count 6.6 T/CUMM (4-12)
[2018-12-15 04:46] LABS: Calcium 8.2 MG/DL (8.5-10.1); Potassium 4.6 MMOL/L (3.5-5.1)
[2018-12-15] MEDS: PIPERACILLIN/TAZOBACTAM 3,375 MG in SODIUM CHLORIDE 0.9% 100 ML IV SCH ×3 (05:15→21:50)
[2018-12-15] MEDS: DOBUTamine 500 MG/250 ML PREMIX IV SCH (06:29)
[2018-12-15] MEDS: FUROSEMIDE 40 MG/4 ML VIAL IV SCH ×3 (08:57→21:49)
[2018-12-15] MEDS: ASCORBIC ACID 500 MG TABLET PO SCH ×2 (09:01→21:49)
[2018-12-15] MEDS: ASPIRIN EC 81 MG TABLET PO SCH (09:01)
[2018-12-15] MEDS: MIDODRINE 5 MG TABLET PO SCH ×3 (09:01→21:50)
[2018-12-15] MEDS: METOPROLOL TARTRATE 25 MG TABLET PO SCH ×2 (09:01→21:49)
[2018-12-15] MEDS: VENLAFAXINE 37.5 MG TABLET PO SCH (09:01)
[2018-12-15] MEDS: PANTOPRAZOLE 40 MG TABLET PO SCH (09:01)
[2018-12-15] MEDS: SERTRALINE 25 MG TABLET PO SCH (21:49)
[2018-12-16] MEDS: ALBUTEROL/IPRATROPIUM 3 ML NEB RESP TX SCH ×7 (00:05→23:04)
[2018-12-16] MEDS: DOBUTamine 500 MG/250 ML PREMIX IV SCH ×2 (00:15→17:12)
[2018-12-16 04:23] LABS: Basophils # 0.1 10*3/uL (0.0-0.2); Basophils % 1.6 % (0.0-0.8); Eosinophils # 0.1 10*3/uL (0.0-0.87); Eosinophils % 2.3 % (0.00-10.9); Hematocrit 38.5 VOL% (35.7-47.0); Immature Granulocytes % 0.4 %; Immature Granulocytes Absolute 0.02 #; Lymphocytes # 0.4 10*3/uL (1.4-4.0); Lymphocytes % 7.2 % (21.3-54.2); Mean Corpuscular HGB Conc 31.2 GM/DL (32-36); Mean Corpuscular Hemoglobin 28 PG (27-34); Mean Corpuscular Volume 89.5 FL (87-102); Monocytes # 0.8 10*3/uL (0.11-0.8); Monocytes % 13.8 % (1.7-12.7); Neutrophils # 4.3 10*3/uL (1.4-7.4); Neutrophils % 74.7 % (38.7-73.9); Platelet Count 216 T/CUMM (130-400); Red Cell Distribution Width 17.2 % (9.3-17.3); White Blood Count 5.7 T/CUMM (4-12)
[2018-12-16 04:46] LABS: Calcium 8.3 MG/DL (8.5-10.1); Osmolality,Calculated 293.1 MOS/KG (273-304); Potassium 4.5 MMOL/L (3.5-5.1)
[2018-12-16 04:52] LABS: Calcium 8.6 MG/DL (8.5-10.1); Osmolality,Calculated 296.8 MOS/KG (273-304); Potassium 4.8 MMOL/L (3.5-5.1)
[2018-12-16] MEDS: PIPERACILLIN/TAZOBACTAM 3,375 MG in SODIUM CHLORIDE 0.9% 100 ML IV SCH ×3 (05:00→20:44)
[2018-12-16] MEDS: hydrALAZINE 25 MG TABLET PO SCH ×2 (09:07→20:50)
[2018-12-16] MEDS: ASCORBIC ACID 500 MG TABLET PO SCH ×2 (09:07→20:49)
[2018-12-16] MEDS: ISOSORBIDE MONONITRATE 30 MG TABLET PO SCH (09:07)
[2018-12-16] MEDS: ASPIRIN EC 81 MG TABLET PO SCH (09:07)
[2018-12-16] MEDS: FUROSEMIDE 40 MG/4 ML VIAL IV SCH ×3 (09:08→20:44)
[2018-12-16] MEDS: VENLAFAXINE 37.5 MG TABLET PO SCH (09:08)
[2018-12-16] MEDS: PANTOPRAZOLE 40 MG TABLET PO SCH (09:08)
[2018-12-16] MEDS: METOPROLOL TARTRATE 25 MG TABLET PO SCH ×2 (09:08→20:49)
[2018-12-16] MEDS: MIDODRINE 5 MG TABLET PO SCH ×3 (09:11→20:50)
[2018-12-16] MEDS: SERTRALINE 25 MG TABLET PO SCH (20:49)
[2018-12-17] MEDS: ALBUTEROL/IPRATROPIUM 3 ML NEB RESP TX SCH ×5 (02:53→19:10)
[2018-12-17 04:25] LABS: Basophils # 0.1 10*3/uL (0.0-0.2); Basophils % 1.3 % (0.0-0.8); Eosinophils # 0.2 10*3/uL (0.0-0.87); Hematocrit 39.5 VOL% (35.7-47.0); Hemoglobin 12.4 GM/DL (12.0-16.0); Immature Granulocytes % 0.2 %; Immature Granulocytes Absolute 0.01 #; Lymphocytes # 0.3 10*3/uL (1.4-4.0); Lymphocytes % 6.2 % (21.3-54.2); Mean Corpuscular HGB Conc 31.4 GM/DL (32-36); Mean Corpuscular Hemoglobin 28 PG (27-34); Mean Corpuscular Volume 89.2 FL (87-102); Mean Platelet Volume 10.1 FL (9.6-12.0); Monocytes # 0.8 10*3/uL (0.11-0.8); Monocytes % 14.3 % (1.7-12.7); Platelet Count 206 T/CUMM (130-400); Red Blood Count 4.43 MC/CUMM (3.8-5.5); Red Cell Distribution Width 17.2 % (9.3-17.3); White Blood Count 5.3 T/CUMM (4-12)
[2018-12-17 04:51] LABS: Calcium 8.7 MG/DL (8.5-10.1)
[2018-12-17 04:52] LABS: Potassium 4.4 MMOL/L (3.5-5.1)
[2018-12-17] MEDS: hydrALAZINE 25 MG TABLET PO SCH ×2 (11:07→21:52)
[2018-12-17] MEDS: ASPIRIN EC 81 MG TABLET PO SCH (11:07)
[2018-12-17] MEDS: VENLAFAXINE 37.5 MG TABLET PO SCH (11:07)
[2018-12-17] MEDS: ISOSORBIDE MONONITRATE 30 MG TABLET PO SCH (11:07)
[2018-12-17] MEDS: METOPROLOL TARTRATE 25 MG TABLET PO SCH ×2 (11:08→21:52)
[2018-12-17] MEDS: ASCORBIC ACID 500 MG TABLET PO SCH ×2 (11:08→21:52)
[2018-12-17] MEDS: MIDODRINE 5 MG TABLET PO SCH ×3 (11:08→21:52)
[2018-12-17] MEDS: PANTOPRAZOLE 40 MG TABLET PO SCH (11:08)
[2018-12-17] MEDS: FUROSEMIDE 40 MG/4 ML VIAL IV SCH ×3 (11:16→21:51)
[2018-12-17] MEDS: DOBUTamine 500 MG/250 ML PREMIX IV SCH (12:48)
[2018-12-17] MEDS: ISOSORBIDE DINITRATE 20 MG TABLET PO SCH ×2 (16:58→21:52)
[2018-12-17] MEDS: SERTRALINE 25 MG TABLET PO SCH (21:52)
[2018-12-18] MEDS: ALBUTEROL/IPRATROPIUM 3 ML NEB RESP TX SCH ×7 (00:25→23:47)
[2018-12-18] MEDS: DOBUTamine 500 MG/250 ML PREMIX IV SCH (02:44)
[2018-12-18 04:51] LABS: Basophils # 0.1 10*3/uL (0.0-0.2); Basophils % 1.5 % (0.0-0.8); Eosinophils # 0.2 10*3/uL (0.0-0.87); Eosinophils % 4.1 % (0.00-10.9); Hematocrit 39.3 VOL% (35.7-47.0); Hemoglobin 12.6 GM/DL (12.0-16.0); Immature Granulocytes % 0.4 %; Immature Granulocytes Absolute 0.02 #; Lymphocytes # 0.4 10*3/uL (1.4-4.0); Lymphocytes % 8.3 % (21.3-54.2); Mean Corpuscular HGB Conc 32.1 GM/DL (32-36); Mean Corpuscular Hemoglobin 28 PG (27-34); Mean Corpuscular Volume 87.7 FL (87-102); Mean Platelet Volume 10.1 FL (9.6-12.0); Monocytes # 1.1 10*3/uL (0.11-0.8); Monocytes % 21.2 % (1.7-12.7); Neutrophils # 3.4 10*3/uL (1.4-7.4); Neutrophils % 64.5 % (38.7-73.9); Platelet Count 210 T/CUMM (130-400); Red Blood Count 4.48 MC/CUMM (3.8-5.5); Red Cell Distribution Width 16.9 % (9.3-17.3); White Blood Count 5.3 T/CUMM (4-12)
[2018-12-18 05:07] LABS: Calcium 8.8 MG/DL (8.5-10.1); Osmolality,Calculated 292.1 MOS/KG (273-304)
[2018-12-18 05:17] LABS: Eosinophils 4 % (0-10); Lymphocytes 12 % (20-55); Platelet Estimate Adequate; Segmented Neutrophils 68 % (50-85); Total Cells Counted 100
[2018-12-18 05:18] LABS: Hypochromasia 1+; Ovalocytes Slight
[2018-12-18] MEDS ORDERED: ZINC OXIDE PASTE 113 GM TUBE TOP PRN (09:11)
[2018-12-18] MEDS: ASPIRIN EC 81 MG TABLET PO SCH (09:32)
[2018-12-18] MEDS: ISOSORBIDE DINITRATE 20 MG TABLET PO SCH ×3 (09:32→22:17)
[2018-12-18] MEDS: hydrALAZINE 25 MG TABLET PO SCH ×2 (09:32→22:17)
[2018-12-18] MEDS: VENLAFAXINE 37.5 MG TABLET PO SCH (09:32)
[2018-12-18] MEDS: METOPROLOL TARTRATE 25 MG TABLET PO SCH ×2 (09:33→22:11)
[2018-12-18] MEDS: PANTOPRAZOLE 40 MG TABLET PO SCH (09:33)
[2018-12-18] MEDS: MIDODRINE 5 MG TABLET PO SCH ×3 (09:33→22:13)
[2018-12-18] MEDS: ASCORBIC ACID 500 MG TABLET PO SCH ×2 (09:33→22:12)
[2018-12-18] MEDS: ACETAMINOPHEN 325 MG TABLET PO PRN (09:34)
[2018-12-18] MEDS: FUROSEMIDE 40 MG/4 ML VIAL IV SCH ×3 (09:39→22:11)
[2018-12-18] MEDS: NYSTATIN 500,000 UNIT/5 ML UDCUP SWISH/SWAL SCH ×3 (14:25→22:17)
[2018-12-18] MEDS: SERTRALINE 25 MG TABLET PO SCH (22:13)
[2018-12-19] MEDS: ALBUTEROL/IPRATROPIUM 3 ML NEB RESP TX SCH ×6 (03:53→23:48)
[2018-12-19 04:06] LABS: Basophils # 0.1 10*3/uL (0.0-0.2); Basophils % 1.4 % (0.0-0.8); Eosinophils # 0.2 10*3/uL (0.0-0.87); Eosinophils % 3.5 % (0.00-10.9); Hematocrit 40.4 VOL% (35.7-47.0); Hemoglobin 12.9 GM/DL (12.0-16.0); Immature Granulocytes % 0.3 %; Immature Granulocytes Absolute 0.02 #; Lymphocytes # 0.7 10*3/uL (1.4-4.0); Lymphocytes % 11.4 % (21.3-54.2); Mean Corpuscular HGB Conc 31.9 GM/DL (32-36); Mean Corpuscular Hemoglobin 28 PG (27-34); Mean Corpuscular Volume 87.3 FL (87-102); Mean Platelet Volume 10.3 FL (9.6-12.0); Monocytes % 16.6 % (1.7-12.7); Neutrophils # 3.9 10*3/uL (1.4-7.4); Neutrophils % 66.8 % (38.7-73.9); Platelet Count 226 T/CUMM (130-400); Red Blood Count 4.63 MC/CUMM (3.8-5.5); White Blood Count 5.8 T/CUMM (4-12)
[2018-12-19 04:21] LABS: Calcium 9.1 MG/DL (8.5-10.1); Osmolality,Calculated 290.3 MOS/KG (273-304)
[2018-12-19 04:50] LABS: Eosinophils 5 % (0-10); Hypochromasia 1+; Lymphocytes 10 % (20-55); Platelet Estimate Adequate; Segmented Neutrophils 68 % (50-85); Total Cells Counted 100
[2018-12-19] MEDS ORDERED: SODIUM CHLORIDE 0.9% 1,000 ML IV PRN (08:42)
[2018-12-19 09:23] LABS: Basophils # 0.1 10*3/uL (0.0-0.2); Basophils % 1.2 % (0.0-0.8); Eosinophils # 0.2 10*3/uL (0.0-0.87); Eosinophils % 2.8 % (0.00-10.9); Hematocrit 40.4 VOL% (35.7-47.0); Immature Granulocytes % 0.3 %; Immature Granulocytes Absolute 0.02 #; Lymphocytes # 0.6 10*3/uL (1.4-4.0); Lymphocytes % 10.6 % (21.3-54.2); Mean Corpuscular HGB Conc 32.2 GM/DL (32-36); Mean Corpuscular Hemoglobin 28 PG (27-34); Mean Corpuscular Volume 87.3 FL (87-102); Monocytes % 17.3 % (1.7-12.7); Neutrophils # 3.9 10*3/uL (1.4-7.4); Neutrophils % 67.8 % (38.7-73.9); Platelet Count 220 T/CUMM (130-400); Red Blood Count 4.63 MC/CUMM (3.8-5.5); White Blood Count 5.8 T/CUMM (4-12)
[2018-12-19 09:44] LABS: Hypochromasia 1+; Lymphocytes 10 % (20-55); Segmented Neutrophils 79 % (50-85); Total Cells Counted 100
[2018-12-19 09:45] LABS: Microcytosis 1+; Platelet Estimate Normal
[2018-12-19 09:48] LABS: Albumin 2.5 G/DL (3.4-5.0); Osmolality,Calculated 290.3 MOS/KG (273-304); Potassium 3.9 MMOL/L (3.5-5.1)
[2018-12-19] MEDS: ASPIRIN EC 81 MG TABLET PO SCH (11:32)
[2018-12-19] MEDS: hydrALAZINE 25 MG TABLET PO SCH ×2 (11:32→23:23)
[2018-12-19] MEDS: VENLAFAXINE 37.5 MG TABLET PO SCH (11:32)
[2018-12-19] MEDS: ISOSORBIDE DINITRATE 20 MG TABLET PO SCH ×3 (11:33→23:23)
[2018-12-19] MEDS: MIDODRINE 5 MG TABLET PO SCH ×3 (11:33→23:22)
[2018-12-19] MEDS: METOPROLOL TARTRATE 25 MG TABLET PO SCH ×2 (11:33→23:20)
[2018-12-19] MEDS: NYSTATIN 500,000 UNIT/5 ML UDCUP SWISH/SWAL SCH ×3 (11:33→18:25)
[2018-12-19] MEDS: PANTOPRAZOLE 40 MG TABLET PO SCH (11:34)
[2018-12-19] MEDS: ASCORBIC ACID 500 MG TABLET PO SCH ×2 (11:34→23:21)
[2018-12-19] MEDS: FUROSEMIDE 40 MG/4 ML VIAL IV SCH ×3 (11:44→23:36)
[2018-12-19] MEDS: SERTRALINE 25 MG TABLET PO SCH (23:22)
[2018-12-20] MEDS: ACETAMINOPHEN 325 MG TABLET PO PRN (01:10)
[2018-12-20] MEDS: NYSTATIN 500,000 UNIT/5 ML UDCUP SWISH/SWAL SCH ×5 (02:30→22:50)
[2018-12-20] MEDS: ALBUTEROL/IPRATROPIUM 3 ML NEB RESP TX SCH ×5 (03:26→20:26)
[2018-12-20 05:31] LABS: Basophils # 0.1 10*3/uL (0.0-0.2); Basophils % 2.2 % (0.0-0.8); Eosinophils # 0.2 10*3/uL (0.0-0.87); Eosinophils % 4.4 % (0.00-10.9); Hematocrit 40.4 VOL% (35.7-47.0); Hemoglobin 13.2 GM/DL (12.0-16.0); Immature Granulocytes % 0.2 %; Immature Granulocytes Absolute 0.01 #; Lymphocytes # 0.7 10*3/uL (1.4-4.0); Lymphocytes % 13.3 % (21.3-54.2); Mean Corpuscular HGB Conc 32.7 GM/DL (32-36); Mean Corpuscular Hemoglobin 28 PG (27-34); Mean Corpuscular Volume 86.7 FL (87-102); Mean Platelet Volume 10.7 FL (9.6-12.0); Monocytes # 0.8 10*3/uL (0.11-0.8); Monocytes % 15.9 % (1.7-12.7); Neutrophils # 3.2 10*3/uL (1.4-7.4); Platelet Count 219 T/CUMM (130-400); Red Blood Count 4.66 MC/CUMM (3.8-5.5)
[2018-12-20 05:46] LABS: Calcium 9.3 MG/DL (8.5-10.1); Osmolality,Calculated 292.1 MOS/KG (273-304); Potassium 3.7 MMOL/L (3.5-5.1)
[2018-12-20 05:55] LABS: Eosinophils 6 % (0-10); Hypochromasia 1+; Lymphocytes 12 % (20-55); Ovalocytes Slight; Platelet Estimate Adequate; Segmented Neutrophils 66 % (50-85); Total Cells Counted 100
[2018-12-20 05:56] LABS: Microcytosis 1+
[2018-12-20] MEDS: MIDODRINE 5 MG TABLET PO SCH ×3 (09:14→22:49)
[2018-12-20] MEDS: ASCORBIC ACID 500 MG TABLET PO SCH ×2 (09:14→22:48)
[2018-12-20] MEDS: ASPIRIN EC 81 MG TABLET PO SCH (09:14)
[2018-12-20] MEDS: ISOSORBIDE DINITRATE 20 MG TABLET PO SCH ×3 (09:14→22:50)
[2018-12-20] MEDS: METOPROLOL TARTRATE 25 MG TABLET PO SCH (09:14)
[2018-12-20] MEDS: PANTOPRAZOLE 40 MG TABLET PO SCH (09:14)
[2018-12-20] MEDS: hydrALAZINE 25 MG TABLET PO SCH ×2 (09:14→22:50)
[2018-12-20] MEDS: FUROSEMIDE 40 MG/4 ML VIAL IV SCH ×3 (09:15→22:48)
[2018-12-20] MEDS ORDERED: MAGNESIUM SULF RIDER 2 GM in PREMIX 1 EACH IV ONE (09:56)
[2018-12-20] MEDS: METOPROLOL SUCCINATE XL 25 MG TABLET PO SCH (16:53)
[2018-12-20] MEDS: SERTRALINE 25 MG TABLET PO SCH (23:13)
[2018-12-21] MEDS: ALBUTEROL/IPRATROPIUM 3 ML NEB RESP TX SCH ×7 (01:01→23:52)
[2018-12-21 05:39] LABS: Basophils # 0.1 10*3/uL (0.0-0.2); Basophils % 1.5 % (0.0-0.8); Eosinophils # 0.3 10*3/uL (0.0-0.87); Eosinophils % 4.9 % (0.00-10.9); Hematocrit 37.5 VOL% (35.7-47.0); Hemoglobin 11.8 GM/DL (12.0-16.0); Immature Granulocytes % 0.5 %; Immature Granulocytes Absolute 0.03 #; Lymphocytes # 0.7 10*3/uL (1.4-4.0); Lymphocytes % 11.7 % (21.3-54.2); Mean Corpuscular HGB Conc 31.5 GM/DL (32-36); Mean Corpuscular Hemoglobin 28 PG (27-34); Mean Corpuscular Volume 87.8 FL (87-102); Mean Platelet Volume 10.5 FL (9.6-12.0); Monocytes % 16.2 % (1.7-12.7); Neutrophils # 3.9 10*3/uL (1.4-7.4); Neutrophils % 65.2 % (38.7-73.9); Platelet Count 224 T/CUMM (130-400); Red Blood Count 4.27 MC/CUMM (3.8-5.5); Red Cell Distribution Width 16.9 % (9.3-17.3); White Blood Count 5.9 T/CUMM (4-12)
[2018-12-21 05:50] LABS: Calcium 9.1 MG/DL (8.5-10.1); Osmolality,Calculated 292.1 MOS/KG (273-304); Potassium 3.7 MMOL/L (3.5-5.1)
[2018-12-21 07:28] LABS: Eosinophils 7 % (0-10); Lymphocytes 8 % (20-55); Segmented Neutrophils 74 % (50-85); Total Cells Counted 100
[2018-12-21 07:29] LABS: Anisocytosis 1+; Hypochromasia 1+; Ovalocytes 1+; Platelet Estimate Adequate; Target Cells 1+
[2018-12-21] MEDS: METOPROLOL SUCCINATE XL 25 MG TABLET PO SCH (08:57)
[2018-12-21] MEDS: MIDODRINE 5 MG TABLET PO SCH ×3 (08:57→21:48)
[2018-12-21] MEDS: PANTOPRAZOLE 40 MG TABLET PO SCH (08:57)
[2018-12-21] MEDS: ASPIRIN EC 81 MG TABLET PO SCH (08:57)
[2018-12-21] MEDS: ISOSORBIDE DINITRATE 20 MG TABLET PO SCH ×3 (08:57→21:56)
[2018-12-21] MEDS: NYSTATIN 500,000 UNIT/5 ML UDCUP SWISH/SWAL SCH ×3 (08:57→16:10)
[2018-12-21] MEDS: ASCORBIC ACID 500 MG TABLET PO SCH ×2 (08:57→23:29)
[2018-12-21] MEDS: hydrALAZINE 25 MG TABLET PO SCH ×2 (08:57→21:48)
[2018-12-21] MEDS: ACETAMINOPHEN 325 MG TABLET PO PRN (08:59)
[2018-12-21] MEDS: FUROSEMIDE 40 MG/4 ML VIAL IV SCH ×3 (09:00→21:47)
[2018-12-21] MEDS: SERTRALINE 25 MG TABLET PO SCH (21:47)
[2018-12-22] MEDS: ALBUTEROL/IPRATROPIUM 3 ML NEB RESP TX SCH ×5 (02:57→19:57)
[2018-12-22 03:41] LABS: Basophils # 0.1 10*3/uL (0.0-0.2); Basophils % 1.2 % (0.0-0.8); Eosinophils # 0.3 10*3/uL (0.0-0.87); Eosinophils % 5.7 % (0.00-10.9); Hematocrit 37.8 VOL% (35.7-47.0); Hemoglobin 11.7 GM/DL (12.0-16.0); Immature Granulocytes % 0.2 %; Immature Granulocytes Absolute 0.01 #; Lymphocytes # 0.7 10*3/uL (1.4-4.0); Lymphocytes % 12.2 % (21.3-54.2); Mean Corpuscular Hemoglobin 28 PG (27-34); Mean Corpuscular Volume 88.7 FL (87-102); Mean Platelet Volume 10.4 FL (9.6-12.0); Monocytes # 0.8 10*3/uL (0.11-0.8); Monocytes % 13.7 % (1.7-12.7); Neutrophils # 3.8 10*3/uL (1.4-7.4); Platelet Count 233 T/CUMM (130-400); Red Blood Count 4.26 MC/CUMM (3.8-5.5); Red Cell Distribution Width 16.6 % (9.3-17.3); White Blood Count 5.6 T/CUMM (4-12)
[2018-12-22 04:05] LABS: Calcium 9.1 MG/DL (8.5-10.1); Osmolality,Calculated 289.4 MOS/KG (273-304); Potassium 3.8 MMOL/L (3.5-5.1)
[2018-12-22] MEDS: NYSTATIN 500,000 UNIT/5 ML UDCUP SWISH/SWAL SCH ×4 (05:12→17:06)
[2018-12-22] MEDS: MIDODRINE 5 MG TABLET PO SCH ×3 (10:40→22:01)
[2018-12-22] MEDS: ISOSORBIDE DINITRATE 20 MG TABLET PO SCH ×3 (10:41→22:01)
[2018-12-22] MEDS: METOPROLOL SUCCINATE XL 25 MG TABLET PO SCH (10:41)
[2018-12-22] MEDS: PANTOPRAZOLE 40 MG TABLET PO SCH (10:41)
[2018-12-22] MEDS: ASCORBIC ACID 500 MG TABLET PO SCH (10:41)
[2018-12-22] MEDS: FUROSEMIDE 40 MG/4 ML VIAL IV SCH ×3 (10:41→22:01)
[2018-12-22] MEDS: ASPIRIN EC 81 MG TABLET PO SCH (10:41)
[2018-12-22] MEDS: hydrALAZINE 25 MG TABLET PO SCH (10:41)
[2018-12-22] MEDS: SERTRALINE 25 MG TABLET PO SCH (22:01)
[2018-12-23] MEDS: ALBUTEROL/IPRATROPIUM 3 ML NEB RESP TX SCH ×5 (00:43→13:42)
[2018-12-23] MEDS: ASCORBIC ACID 500 MG TABLET PO SCH ×2 (00:45→09:41)
[2018-12-23] MEDS: ACETAMINOPHEN 325 MG TABLET PO PRN (01:30)
[2018-12-23] MEDS: NYSTATIN 500,000 UNIT/5 ML UDCUP SWISH/SWAL SCH ×3 (01:38→12:23)
[2018-12-23] MEDS: hydrALAZINE 25 MG TABLET PO SCH ×2 (01:39→09:41)
[2018-12-23 06:31] LABS: Basophils # 0.1 10*3/uL (0.0-0.2); Eosinophils # 0.3 10*3/uL (0.0-0.87); Eosinophils % 4.4 % (0.00-10.9); Hematocrit 36.3 VOL% (35.7-47.0); Hemoglobin 11.6 GM/DL (12.0-16.0); Immature Granulocytes % 0.5 %; Immature Granulocytes Absolute 0.03 #; Lymphocytes # 0.7 10*3/uL (1.4-4.0); Lymphocytes % 11.9 % (21.3-54.2); Mean Corpuscular Hemoglobin 28 PG (27-34); Mean Corpuscular Volume 88.1 FL (87-102); Mean Platelet Volume 11.3 FL (9.6-12.0); Monocytes % 15.9 % (1.7-12.7); Neutrophils # 4.1 10*3/uL (1.4-7.4); Neutrophils % 66.3 % (38.7-73.9); Platelet Count 237 T/CUMM (130-400); Red Blood Count 4.12 MC/CUMM (3.8-5.5); Red Cell Distribution Width 16.8 % (9.3-17.3); White Blood Count 6.2 T/CUMM (4-12)
[2018-12-23 06:54] LABS: Calcium 9.2 MG/DL (8.5-10.1); Osmolality,Calculated 293.4 MOS/KG (273-304)
[2018-12-23 06:59] LABS: Eosinophils 9 % (0-10); Hypochromasia 1+; Lymphocytes 12 % (20-55); Ovalocytes Slight; Platelet Estimate Adequate; Segmented Neutrophils 65 % (50-85); Total Cells Counted 100
[2018-12-23 07:00] LABS: Microcytosis Slight
[2018-12-23] MEDS: PANTOPRAZOLE 40 MG TABLET PO SCH (09:41)
[2018-12-23] MEDS: METOPROLOL SUCCINATE XL 25 MG TABLET PO SCH (09:41)
[2018-12-23] MEDS: ISOSORBIDE DINITRATE 20 MG TABLET PO SCH (09:41)
[2018-12-23] MEDS: FUROSEMIDE 40 MG/4 ML VIAL IV SCH (09:41)
[2018-12-23] MEDS: ASPIRIN EC 81 MG TABLET PO SCH (09:41)
[2018-12-23] MEDS: MIDODRINE 5 MG TABLET PO SCH (09:46)
[2018-12-23 12:40] VITALS: BP 109/71
[2018-12-23] MEDS ORDERED: FUROSEMIDE 80 MG TABLET PO SCH (16:00)
[2018-12-24] MEDS ORDERED: ISOSORBIDE MONONITRATE 30 MG TABLET PO SCH (09:00)
== END 2018-12-23 14:44 | disposition home health service (06) | DRG 194 ==
LOC: N.ED 07:41 → SUATTDRO 13:14 → N.EDINP 13:14 → N.TELES 15:27
PROVIDERS: ADMIT Internal Medicine; ATTEND Internal Medicine

== ENCOUNTER 2019-01-03 10:07 | Inpatient (IN) ==
[2019-01-03] MEDS ORDERED: FUROSEMIDE 100 MG/10 ML VIAL IV STA (10:37)
[2019-01-03 10:48] LABS: Basophils # 0.1 10*3/uL (0.0-0.2); Basophils % 1.5 % (0.0-0.8); Eosinophils # 0.1 10*3/uL (0.0-0.87); Eosinophils % 1.1 % (0.00-10.9); Hematocrit 42.4 VOL% (35.7-47.0); Hemoglobin 13.2 GM/DL (12.0-16.0); Immature Granulocytes % 0.6 %; Immature Granulocytes Absolute 0.04 #; Lymphocytes # 0.8 10*3/uL (1.4-4.0); Lymphocytes % 12.6 % (21.3-54.2); Mean Corpuscular HGB Conc 31.1 GM/DL (32-36); Mean Corpuscular Hemoglobin 27 PG (27-34); Mean Platelet Volume 10.1 FL (9.6-12.0); Monocytes # 0.8 10*3/uL (0.11-0.8); Monocytes % 12.4 % (1.7-12.7); NRBC # 0.02 10*3/uL; Neutrophils # 4.4 10*3/uL (1.4-7.4); Neutrophils % 71.8 % (38.7-73.9); Platelet Count 536 T/CUMM (130-400); Red Blood Count 4.82 MC/CUMM (3.8-5.5); Red Cell Distribution Width 17.7 % (9.3-17.3); White Blood Count 6.2 T/CUMM (4-12)
[2019-01-03 10:57] LABS: INR 1.4; PT Patient Result 15.3 SECS; Partial Thromboplastin Time 29.7 SECS (0-40)
[2019-01-03] MEDS ORDERED: ONDANSETRON 4 MG/2 ML VIAL IV STA (11:15)
[2019-01-03] MEDS ORDERED: MORPHINE 10 MG/1 ML VIAL IV STA (11:15)
[2019-01-03 11:16] LABS: Albumin 3.3 G/DL (3.4-5.0); Bilirubin,Total 0.8 MG/DL (0.2-1.0); Calcium 9.2 MG/DL (8.5-10.1); Osmolality,Calculated 290.5 MOS/KG (273-304); Potassium 3.8 MMOL/L (3.5-5.1)
[2019-01-03 11:32] LABS: Apearance,Urine CLOUDY (Clear); Bacteria,Urine Few /HPF (Few); Bilirubin,Urine Negative (Negative); Blood, Urine Negative (Negative); Glucose,Urine (UA) Negative (Negative); Ketones,Urine Negative (Negative); Mucus,Urine Occasional /LPF (Occasional); Nitrite,Urine Negative (Negative); Protein,Urine 100 MG/DL; RBC,Urine 2 /HPF (0-4); Squamous Epithelial Cell,Urine Occasional /HPF (0-10); Urine Color Yellow (Yellow); Urine Specific Gravity 1.016 (1.001-1.035); Urine Urobilinogen < 2.0 EU/DL (0.2-1.0); WBC,Urine 11 /HPF (0-6)
[2019-01-03 12:00] LABS: Barbiturates Screen,Urine Negative (Negative); Benzodiazepines Screen,Urine Negative (Negative); Cannabinoid Screen,Urine Negative (Negative); Opiate Screen,Urine Negative (Negative); Phencyclidine Screen,Urine Negative (Negative)
[2019-01-03] MEDS ORDERED: cefTRIAXone 1,000 MG in SODIUM CHLORIDE 0.9% 100 ML IV STA (13:09)
[2019-01-03] MEDS ORDERED: PROMETHAZINE 25 MG/1 ML VIAL IM PRN (13:13)
[2019-01-03] MEDS ORDERED: ONDANSETRON 4 MG/2 ML VIAL IV PRN (13:13)
[2019-01-03] MEDS ORDERED: METOPROLOL SUCCINATE XL 25 MG TABLET PO SCH (13:30)
[2019-01-03] MEDS ORDERED: AZITHROMYCIN INJ 500 MG in SODIUM CHLORIDE 0.9% 250 ML IV SCH (13:30)
[2019-01-03] MEDS ORDERED: cefTRIAXone 1,000 MG in SODIUM CHLORIDE 0.9% 100 ML IV SCH (13:30)
[2019-01-03] MEDS: PANTOPRAZOLE 40 MG TABLET PO SCH (14:16)
[2019-01-03] MEDS: PIPERACILLIN/TAZOBACTAM 3,375 MG in SODIUM CHLORIDE 0.9% 100 ML IV SCH ×2 (14:28→23:00)
[2019-01-03 14:48] LABS: ABG Base Excess -2.7 MMOL/L (-2.5-2.5); ABG HCO3 20.7 MMOL/L (20-26); ABG Oxygen Saturation 27.6 % (95-100); ABG TCO2 25.8 MMOL/L (23-27)
[2019-01-03] MEDS ORDERED: FUROSEMIDE 40 MG/4 ML VIAL IV ONE (15:04)
[2019-01-03 15:05] LABS: ABG PCO2 73.3 MM HG (35-48); ABG PH 7.193 (7.35-7.45); ABG PO2 26.4 MM HG (80-95)
[2019-01-03] MEDS ORDERED: ETOMIDATE 20 MG/10 ML VIAL IV ONE ×2 (15:08→15:11)
[2019-01-03] MEDS ORDERED: SUCCINYLCHOLINE 200 MG/10 ML VIAL ONE (15:09)
[2019-01-03] MEDS ORDERED: SUCCINYLCHOLINE 200 MG/10 ML VIAL IV ONE (15:12)
[2019-01-03] MEDS ORDERED: PROPOFOL 1,000 MG/100 ML BOTTLE IV ONE (15:17)
[2019-01-03] MEDS ORDERED: ATROPINE 1 MG/10 ML SYRINGE ONE (15:20)
[2019-01-03] MEDS ORDERED: ATROPINE 1 MG/10 ML SYRINGE IV ONE (15:20)
[2019-01-03] MEDS ORDERED: SODIUM BICARBONATE 50 MEQ/50 ML SYRINGE IV ONE ×3 (15:21→15:46)
[2019-01-03] MEDS ORDERED: EPINEPHrine 1 MG/ML VIAL ONE (15:46)
[2019-01-03] MEDS ORDERED: PROPOFOL 1,000 MG/100 ML BOTTLE IV SCH (16:00)
[2019-01-03] MEDS ORDERED: FUROSEMIDE 40 MG/4 ML VIAL IV SCH ×2 (16:00)
[2019-01-03] MEDS ORDERED: DOBUTamine 500 MG/250 ML PREMIX IV PRN (16:11)
[2019-01-03 16:19] LABS: Calcium 9.7 MG/DL (8.5-10.1); Osmolality,Calculated 289.5 MOS/KG (273-304); Potassium 4.7 MMOL/L (3.5-5.1)
[2019-01-03 16:51] LABS: Basophils # 0.1 10*3/uL (0.0-0.2); Basophils % 1.3 % (0.0-0.8); Eosinophils # 0.1 10*3/uL (0.0-0.87); Eosinophils % 0.7 % (0.00-10.9); Hematocrit 47.7 VOL% (35.7-47.0); Immature Granulocytes % 3.9 %; Immature Granulocytes Absolute 0.32 #; Lymphocytes # 1.3 10*3/uL (1.4-4.0); Lymphocytes % 15.8 % (21.3-54.2); Mean Corpuscular HGB Conc 29.6 GM/DL (32-36); Mean Corpuscular Hemoglobin 27 PG (27-34); Mean Corpuscular Volume 92.6 FL (87-102); Mean Platelet Volume 11.3 FL (9.6-12.0); Monocytes # 0.8 10*3/uL (0.11-0.8); NRBC # 0.08 10*3/uL; Neutrophils # 5.6 10*3/uL (1.4-7.4); Neutrophils % 68.3 % (38.7-73.9); Platelet Count 383 T/CUMM (130-400); Red Blood Count 5.15 MC/CUMM (3.8-5.5); Red Cell Distribution Width 17.9 % (9.3-17.3); White Blood Count 8.2 T/CUMM (4-12)
[2019-01-03] MEDS ORDERED: ALBUMIN 25% 25 GM in PREMIX 1 EACH IV ONE ×2 (17:00→18:12)
[2019-01-03] MEDS ORDERED: CALCIUM GLUCONATE 1,000 MG in SODIUM CHLORIDE 0.9% 100 ML IV ONE ×2 (17:00→18:13)
[2019-01-03] MEDS ORDERED: PHENYLEPHRINE DRIP 40 MG/250 ML PREMIX IV ONE (17:00)
[2019-01-03 17:02] LABS: Hemoglobin 14.1 GM/DL (12.0-16.0)
[2019-01-03] MEDS: PHENYLEPHRINE DRIP 40 MG/250 ML PREMIX IV PRN (17:05)
[2019-01-03] MEDS: ENOXAPARIN 30 MG/0.3 ML SYRINGE SUBCUT SCH (17:13)
[2019-01-03] MEDS: metOLazone 2.5 MG TABLET PO SCH (17:13)
[2019-01-03] MEDS: SPIRONOLACTONE 50 MG TABLET PO SCH ×2 (17:13→23:18)
[2019-01-03] MEDS: FUROSEMIDE 100 MG/10 ML VIAL IV SCH (17:13)
[2019-01-03 17:15] LABS: Hepatitis A Ab IgM Quant 0.21 Index; Hepatitis A Ab IgM Result Negative (Negative); Hepatitis B Core IgM Quant 0.07 Index; Hepatitis B Core IgM Result Negative (Negative); Hepatitis B Surface Ag Quant < 0.10 Index; Hepatitis B Surface Ag Result Negative (Negative); Hepatitis C Virus Ab Quant 0.07 Index; Hepatitis C Virus Ab Result Negative (Negative)
[2019-01-03] MEDS ORDERED: INFLUENZA VIRUS VACCINE 0.5 ML SYRINGE IM ONE (17:17)
[2019-01-03 17:56] LABS: Allen Test Positive; Pt O2 Delivery Device Ventilator
[2019-01-03 17:58] LABS: ABG Base Excess -15.4 MMOL/L (-2.5-2.5); ABG HCO3 11.8 MMOL/L (20-26); ABG Oxygen Saturation 32.6 % (95-100); ABG PCO2 25.5 MM HG (35-48); ABG TCO2 10.8 MMOL/L (23-27)
[2019-01-03 18:00] LABS: ABG PO2 25.6 MM HG (80-95)
[2019-01-03] MEDS ORDERED: HEPARIN 10,000 UNIT/10 ML VIAL IV PRN (18:23)
[2019-01-03 18:46] LABS: ABG Base Excess -5.2 MMOL/L (-2.5-2.5); ABG HCO3 18.5 MMOL/L (20-26); ABG Oxygen Saturation 12.1 % (95-100); ABG TCO2 24.1 MMOL/L (23-27)
[2019-01-03 18:51] LABS: ABG PCO2 71.8 MM HG (35-48); ABG PH 7.162 (7.35-7.45); ABG PO2 17.7 MM HG (80-95)
[2019-01-03] MEDS: LORazepam 2 MG/1 ML VIAL IV PRN (19:30)
[2019-01-03] MEDS: ALBUTEROL/IPRATROPIUM 3 ML NEB RESP TX SCH (20:34)
[2019-01-03 21:11] LABS: ABG Base Excess 0.8 MMOL/L (-2.5-2.5); ABG HCO3 25.2 MMOL/L (20-26); ABG PCO2 32.3 MM HG (35-48); ABG PH 7.475 (7.35-7.45); ABG TCO2 20.9 MMOL/L (23-27)
[2019-01-03] MEDS: LEVOFLOXACIN INJ 500 MG in PREMIX 1 EACH IV SCH (22:00)
[2019-01-03] MEDS: HYDROCORTISONE 100 MG VIAL IV SCH (22:01)
[2019-01-03] MEDS: POTASSIUM CHLORIDE 20 MEQ TABLET PO SCH (23:18)
[2019-01-03] MEDS: SERTRALINE 25 MG TABLET PO SCH (23:19)
[2019-01-04] MEDS: ALBUTEROL/IPRATROPIUM 3 ML NEB RESP TX SCH ×4 (01:35→19:40)
[2019-01-04] MEDS: HYDROCORTISONE 100 MG VIAL IV SCH ×4 (02:54→21:03)
[2019-01-04] MEDS: LORazepam 2 MG/1 ML VIAL IV PRN ×2 (04:35→16:05)
[2019-01-04 04:39] LABS: ABG Base Excess -2.1 MMOL/L (-2.5-2.5); ABG HCO3 22.6 MMOL/L (20-26); ABG Oxygen Saturation 98.3 % (95-100); ABG PCO2 38.5 MM HG (35-48); ABG PH 7.387 (7.35-7.45); ABG PO2 129.4 MM HG (80-95); ABG TCO2 23.8 MMOL/L (23-27)
[2019-01-04 04:50] LABS: Basophils # 0.1 10*3/uL (0.0-0.2); Basophils % 0.5 % (0.0-0.8); Eosinophils % 0.1 % (0.00-10.9); Hematocrit 35.9 VOL% (35.7-47.0); Hemoglobin 11.2 GM/DL (12.0-16.0); Immature Granulocytes % 0.6 %; Immature Granulocytes Absolute 0.07 #; Lymphocytes # 0.4 10*3/uL (1.4-4.0); Lymphocytes % 3.4 % (21.3-54.2); Mean Corpuscular HGB Conc 31.2 GM/DL (32-36); Mean Corpuscular Hemoglobin 28 PG (27-34); Mean Corpuscular Volume 88.2 FL (87-102); Mean Platelet Volume 10.1 FL (9.6-12.0); Monocytes # 0.8 10*3/uL (0.11-0.8); Monocytes % 6.4 % (1.7-12.7); NRBC # 0.02 10*3/uL; Neutrophils # 10.4 10*3/uL (1.4-7.4); Platelet Count 331 T/CUMM (130-400); Red Blood Count 4.07 MC/CUMM (3.8-5.5); Red Cell Distribution Width 17.3 % (9.3-17.3); White Blood Count 11.7 T/CUMM (4-12)
[2019-01-04 05:19] LABS: Ovalocytes Few; Platelet Estimate Normal
[2019-01-04] MEDS: PIPERACILLIN/TAZOBACTAM 3,375 MG in SODIUM CHLORIDE 0.9% 100 ML IV SCH ×2 (06:39→17:56)
[2019-01-04] MEDS: metOLazone 2.5 MG TABLET PO SCH (09:40)
[2019-01-04] MEDS: ASPIRIN EC 81 MG TABLET PO SCH (09:40)
[2019-01-04] MEDS: POTASSIUM CHLORIDE 20 MEQ TABLET PO SCH ×2 (09:40→21:03)
[2019-01-04] MEDS: PANTOPRAZOLE 40 MG TABLET PO SCH (09:41)
[2019-01-04] MEDS: FUROSEMIDE 100 MG/10 ML VIAL IV SCH ×2 (09:41→17:56)
[2019-01-04] MEDS: ENOXAPARIN 30 MG/0.3 ML SYRINGE SUBCUT SCH (13:59)
[2019-01-04] MEDS ORDERED: VANCOMYCIN INJ 1,500 MG in SODIUM CHLORIDE 0.9% 500 ML IV ONE (14:00)
[2019-01-04] MEDS ORDERED: PROPOFOL 1,000 MG/100 ML BOTTLE IV ONE (16:16)
[2019-01-04] MEDS: PROPOFOL 1,000 MG/100 ML BOTTLE IV SCH (17:16)
[2019-01-04] MEDS: PHENYLEPHRINE DRIP 40 MG/250 ML PREMIX IV PRN (17:58)
[2019-01-04] MEDS: METOPROLOL TARTRATE 25 MG TABLET PO SCH (21:02)
[2019-01-04] MEDS: SERTRALINE 25 MG TABLET PO SCH (21:03)
[2019-01-04] MEDS ORDERED: DEXTROSE 50% 25 GM/50 ML VIAL IV PRN (21:42)
[2019-01-04] MEDS ORDERED: GLUCAGON 1 MG VIAL IM PRN (21:42)
[2019-01-04] MEDS ORDERED: DEXTROSE 50% 25 GM/50 ML SYRINGE IV PRN (22:00)
[2019-01-04] MEDS: LEVOFLOXACIN INJ 500 MG in PREMIX 1 EACH IV SCH (22:04)
[2019-01-05] MEDS: ALBUTEROL/IPRATROPIUM 3 ML NEB RESP TX SCH ×4 (00:09→20:21)
[2019-01-05] MEDS: HYDROCORTISONE 100 MG VIAL IV SCH ×4 (02:13→20:17)
[2019-01-05] MEDS: PIPERACILLIN/TAZOBACTAM 3,375 MG in SODIUM CHLORIDE 0.9% 100 ML IV SCH ×3 (02:20→18:00)
[2019-01-05 05:03] LABS: ABG Base Excess -3.3 MMOL/L (-2.5-2.5); ABG HCO3 21.7 MMOL/L (20-26); ABG Oxygen Saturation 99.6 % (95-100); ABG PCO2 34.6 MM HG (35-48); ABG PH 7.389 (7.35-7.45); ABG TCO2 18.5 MMOL/L (23-27)
[2019-01-05 05:16] LABS: Basophils % 0.2 % (0.0-0.8); Hematocrit 37.2 VOL% (35.7-47.0); Hemoglobin 11.9 GM/DL (12.0-16.0); Immature Granulocytes % 0.5 %; Immature Granulocytes Absolute 0.04 #; Lymphocytes # 0.4 10*3/uL (1.4-4.0); Lymphocytes % 4.1 % (21.3-54.2); Mean Corpuscular Hemoglobin 28 PG (27-34); Mean Corpuscular Volume 87.1 FL (87-102); Mean Platelet Volume 9.8 FL (9.6-12.0); Monocytes # 0.8 10*3/uL (0.11-0.8); Monocytes % 9.2 % (1.7-12.7); NRBC # 0.05 10*3/uL; Neutrophils # 7.6 10*3/uL (1.4-7.4); Platelet Count 330 T/CUMM (130-400); Red Blood Count 4.27 MC/CUMM (3.8-5.5); Red Cell Distribution Width 17.3 % (9.3-17.3); White Blood Count 8.8 T/CUMM (4-12)
[2019-01-05 05:40] LABS: Albumin 3.2 G/DL (3.4-5.0); Bilirubin,Total 1.4 MG/DL (0.2-1.0); Calcium 9.5 MG/DL (8.5-10.1); Osmolality,Calculated 295.4 MOS/KG (273-304); Potassium 5.1 MMOL/L (3.5-5.1); Total Protein 7.1 G/DL (6.4-8.3)
[2019-01-05] MEDS: INSULIN REGULAR 100 UNIT/ML SUBCUT SCH ×4 (05:52→18:10)
[2019-01-05 06:08] LABS: Anisocytosis 1+; Band Neutrophils 4 % (0-10); Lymphocytes 2 % (20-55); Macrocytosis Slight; Nucleated Red Blood Cells 3 (0-5); Platelet Estimate Normal; Segmented Neutrophils 90 % (50-85); Total Cells Counted 100
[2019-01-05] MEDS: PROPOFOL 1,000 MG/100 ML BOTTLE IV SCH ×2 (08:40→19:19)
[2019-01-05] MEDS: METOPROLOL TARTRATE 25 MG TABLET PO SCH ×2 (10:03→20:17)
[2019-01-05] MEDS: ASPIRIN EC 81 MG TABLET PO SCH (10:16)
[2019-01-05] MEDS: PANTOPRAZOLE 40 MG TABLET PO SCH (10:16)
[2019-01-05] MEDS: metOLazone 2.5 MG TABLET PO SCH (10:16)
[2019-01-05] MEDS: FUROSEMIDE 100 MG/10 ML VIAL IV SCH ×2 (10:17→16:30)
[2019-01-05] MEDS: DEXMEDETOMIDINE 200 MCG in SODIUM CHLORIDE 0.9% 48 ML IV PRN ×3 (11:47→20:35)
[2019-01-05] MEDS ORDERED: VANCOMYCIN INJ 500 MG in SODIUM CHLORIDE 0.9% 100 ML IV PRN (12:00)
[2019-01-05] MEDS: PHENYLEPHRINE DRIP 40 MG/250 ML PREMIX IV PRN (14:05)
[2019-01-05] MEDS: ENOXAPARIN 30 MG/0.3 ML SYRINGE SUBCUT SCH (14:20)
[2019-01-05] MEDS: SERTRALINE 25 MG TABLET PO SCH (20:17)
[2019-01-05] MEDS: LEVOFLOXACIN INJ 250 MG in PREMIX 1 EACH IV SCH (22:03)
[2019-01-06] MEDS: ALBUTEROL/IPRATROPIUM 3 ML NEB RESP TX SCH ×4 (00:01→19:30)
[2019-01-06] MEDS: INSULIN REGULAR 100 UNIT/ML SUBCUT SCH ×4 (00:33→17:33)
[2019-01-06] MEDS: DEXMEDETOMIDINE 200 MCG in SODIUM CHLORIDE 0.9% 48 ML IV PRN ×4 (01:05→14:16)
[2019-01-06] MEDS: HYDROCORTISONE 100 MG VIAL IV SCH ×4 (01:56→20:16)
[2019-01-06] MEDS: PIPERACILLIN/TAZOBACTAM 3,375 MG in SODIUM CHLORIDE 0.9% 100 ML IV SCH ×2 (02:00→13:43)
[2019-01-06 05:20] LABS: ABG Base Excess -3.4 MMOL/L (-2.5-2.5); ABG HCO3 20.1 MMOL/L (20-26); ABG Oxygen Saturation 99.4 % (95-100); ABG PCO2 31.7 MM HG (35-48); ABG PO2 235.5 MM HG (80-95); ABG TCO2 21.1 MMOL/L (23-27)
[2019-01-06] MEDS: FUROSEMIDE 100 MG/10 ML VIAL IV SCH ×2 (08:25→15:50)
[2019-01-06] MEDS: METOPROLOL TARTRATE 25 MG TABLET PO SCH ×2 (08:26→20:16)
[2019-01-06] MEDS: ASPIRIN EC 81 MG TABLET PO SCH (08:26)
[2019-01-06] MEDS: metOLazone 2.5 MG TABLET PO SCH (08:26)
[2019-01-06] MEDS: PANTOPRAZOLE 40 MG TABLET PO SCH (08:27)
[2019-01-06 09:48] LABS: Calcium 8.8 MG/DL (8.5-10.1); Osmolality,Calculated 309.1 MOS/KG (273-304); Potassium 4.9 MMOL/L (3.5-5.1)
[2019-01-06] MEDS: LANSOPRAZOLE ODT 30 MG TABLET PER TUBE SCH (10:51)
[2019-01-06] MEDS: POTASSIUM CHLORIDE 20 MEQ TABLET PO SCH (10:55)
[2019-01-06] MEDS ORDERED: ALBUMIN 25% 25 GM in PREMIX 1 EACH IV ONE (13:32)
[2019-01-06] MEDS: ENOXAPARIN 30 MG/0.3 ML SYRINGE SUBCUT SCH (13:42)
[2019-01-06] MEDS: PROPOFOL 1,000 MG/100 ML BOTTLE IV SCH (17:32)
[2019-01-06] MEDS ORDERED: VANCOMYCIN INJ 500 MG in SODIUM CHLORIDE 0.9% 100 ML IV ONE (18:00)
[2019-01-06] MEDS: DEXMEDETOMIDINE 400 MCG in SODIUM CHLORIDE 0.9% 96 ML IV PRN (18:54)
[2019-01-06] MEDS: SERTRALINE 25 MG TABLET PO SCH (20:16)
[2019-01-06] MEDS: LEVOFLOXACIN INJ 250 MG in PREMIX 1 EACH IV SCH (22:07)
[2019-01-07] MEDS: INSULIN REGULAR 100 UNIT/ML SUBCUT SCH ×4 (00:15→17:26)
[2019-01-07] MEDS: ALBUTEROL/IPRATROPIUM 3 ML NEB RESP TX SCH ×4 (00:28→20:11)
[2019-01-07] MEDS: PIPERACILLIN/TAZOBACTAM 3,375 MG in SODIUM CHLORIDE 0.9% 100 ML IV SCH ×2 (02:36→15:30)
[2019-01-07] MEDS: HYDROCORTISONE 100 MG VIAL IV SCH ×4 (02:36→21:00)
[2019-01-07] MEDS: DEXMEDETOMIDINE 400 MCG in SODIUM CHLORIDE 0.9% 96 ML IV PRN ×3 (03:30→17:53)
[2019-01-07 04:20] LABS: ABG HCO3 21.9 MMOL/L (20-26); ABG PCO2 34.9 MM HG (35-48); ABG PH 7.415 (7.35-7.45); ABG PO2 180.7 MM HG (80-95); ABG TCO2 22.9 MMOL/L (23-27)
[2019-01-07 04:34] LABS: Hematocrit 38.2 VOL% (35.7-47.0); Hemoglobin 12.5 GM/DL (12.0-16.0); Immature Granulocytes % 0.4 %; Immature Granulocytes Absolute 0.04 #; Lymphocytes # 0.4 10*3/uL (1.4-4.0); Lymphocytes % 3.9 % (21.3-54.2); Mean Corpuscular HGB Conc 32.7 GM/DL (32-36); Mean Corpuscular Hemoglobin 28 PG (27-34); Mean Corpuscular Volume 84.5 FL (87-102); Mean Platelet Volume 10.2 FL (9.6-12.0); Monocytes # 0.5 10*3/uL (0.11-0.8); NRBC # 0.02 10*3/uL; Neutrophils # 8.1 10*3/uL (1.4-7.4); Neutrophils % 89.7 % (38.7-73.9); Platelet Count 165 T/CUMM (130-400); Red Blood Count 4.52 MC/CUMM (3.8-5.5); Red Cell Distribution Width 17.2 % (9.3-17.3)
[2019-01-07 04:48] LABS: Calcium 8.6 MG/DL (8.5-10.1); Osmolality,Calculated 302.3 MOS/KG (273-304); Potassium 4.6 MMOL/L (3.5-5.1)
[2019-01-07 05:01] LABS: Hypochromasia 1+; Lymphocytes 2 % (20-55); Macrocytosis Slight; Platelet Estimate Adequate; Segmented Neutrophils 94 % (50-85); Total Cells Counted 100
[2019-01-07] MEDS: FUROSEMIDE 100 MG/10 ML VIAL IV SCH (08:21)
[2019-01-07] MEDS: metOLazone 2.5 MG TABLET PO SCH (08:21)
[2019-01-07] MEDS: LANSOPRAZOLE ODT 30 MG TABLET PER TUBE SCH (08:22)
[2019-01-07] MEDS: METOPROLOL TARTRATE 25 MG TABLET PO SCH ×3 (08:22→21:00)
[2019-01-07] MEDS: ASPIRIN EC 81 MG TABLET PO SCH (08:22)
[2019-01-07] MEDS: ENOXAPARIN 30 MG/0.3 ML SYRINGE SUBCUT SCH (15:47)
[2019-01-07] MEDS: PROPOFOL 1,000 MG/100 ML BOTTLE IV SCH (16:44)
[2019-01-07] MEDS: SERTRALINE 25 MG TABLET PO SCH (21:00)
[2019-01-07] MEDS: LEVOFLOXACIN INJ 250 MG in PREMIX 1 EACH IV SCH (21:57)
[2019-01-08] MEDS: INSULIN REGULAR 100 UNIT/ML SUBCUT SCH ×4 (00:30→18:36)
[2019-01-08] MEDS: ALBUTEROL/IPRATROPIUM 3 ML NEB RESP TX SCH ×4 (01:00→19:40)
[2019-01-08] MEDS: DEXMEDETOMIDINE 400 MCG in SODIUM CHLORIDE 0.9% 96 ML IV PRN ×3 (01:20→15:43)
[2019-01-08] MEDS: PIPERACILLIN/TAZOBACTAM 3,375 MG in SODIUM CHLORIDE 0.9% 100 ML IV SCH ×2 (02:00→13:32)
[2019-01-08] MEDS: HYDROCORTISONE 100 MG VIAL IV SCH ×4 (02:01→21:50)
[2019-01-08 05:19] LABS: ABG Base Excess -0.4 MMOL/L (-2.5-2.5); ABG HCO3 24.1 MMOL/L (20-26); ABG Oxygen Saturation 99.3 % (95-100); ABG PCO2 38.8 MM HG (35-48); ABG PH 7.402 (7.35-7.45); ABG TCO2 21.3 MMOL/L (23-27)
[2019-01-08 05:45] LABS: Calcium 8.4 MG/DL (8.5-10.1); Potassium 4.1 MMOL/L (3.5-5.1)
[2019-01-08 05:48] LABS: Basophils % 0.1 % (0.0-0.8); Hematocrit 37.2 VOL% (35.7-47.0); Immature Granulocytes % 0.7 %; Immature Granulocytes Absolute 0.07 #; Lymphocytes # 0.2 10*3/uL (1.4-4.0); Lymphocytes % 1.8 % (21.3-54.2); Mean Corpuscular HGB Conc 32.3 GM/DL (32-36); Mean Corpuscular Hemoglobin 28 PG (27-34); Mean Corpuscular Volume 85.3 FL (87-102); Mean Platelet Volume 10.1 FL (9.6-12.0); Monocytes # 0.9 10*3/uL (0.11-0.8); Monocytes % 8.3 % (1.7-12.7); NRBC # 0.02 10*3/uL; Neutrophils # 9.3 10*3/uL (1.4-7.4); Neutrophils % 89.1 % (38.7-73.9); Platelet Count 160 T/CUMM (130-400); Prealbumin 16.7 MG/DL (20-40); Red Blood Count 4.36 MC/CUMM (3.8-5.5); Red Cell Distribution Width 16.8 % (9.3-17.3); White Blood Count 10.5 T/CUMM (4-12)
[2019-01-08 06:16] LABS: Band Neutrophils 3 % (0-10); Lymphocytes 3 % (20-55); Platelet Estimate Normal; Segmented Neutrophils 88 % (50-85); Total Cells Counted 100
[2019-01-08 06:17] LABS: Hypochromasia 2+
[2019-01-08] MEDS: ASPIRIN EC 81 MG TABLET PO SCH (09:55)
[2019-01-08] MEDS: LANSOPRAZOLE ODT 30 MG TABLET PER TUBE SCH (09:55)
[2019-01-08] MEDS: metOLazone 2.5 MG TABLET PO SCH (09:55)
[2019-01-08] MEDS: METOPROLOL TARTRATE 25 MG TABLET PO SCH ×3 (09:56→21:50)
[2019-01-08] MEDS: ENOXAPARIN 30 MG/0.3 ML SYRINGE SUBCUT SCH (13:30)
[2019-01-08] MEDS: PROPOFOL 1,000 MG/100 ML BOTTLE IV SCH (18:12)
[2019-01-08] MEDS: SERTRALINE 25 MG TABLET PO SCH (21:50)
[2019-01-08] MEDS: LEVOFLOXACIN INJ 250 MG in PREMIX 1 EACH IV SCH (22:23)
[2019-01-09] MEDS: ALBUTEROL/IPRATROPIUM 3 ML NEB RESP TX SCH ×5 (00:16→19:16)
[2019-01-09] MEDS: INSULIN REGULAR 100 UNIT/ML SUBCUT SCH ×6 (00:59→20:28)
[2019-01-09] MEDS: HYDROCORTISONE 100 MG VIAL IV SCH ×4 (02:19→22:21)
[2019-01-09] MEDS: PIPERACILLIN/TAZOBACTAM 3,375 MG in SODIUM CHLORIDE 0.9% 100 ML IV SCH (02:20)
[2019-01-09 05:31] LABS: Basophils % 0.1 % (0.0-0.8); Hematocrit 34.8 VOL% (35.7-47.0); Hemoglobin 10.9 GM/DL (12.0-16.0); Immature Granulocytes % 0.3 %; Immature Granulocytes Absolute 0.03 #; Lymphocytes # 0.2 10*3/uL (1.4-4.0); Lymphocytes % 1.7 % (21.3-54.2); Mean Corpuscular HGB Conc 31.3 GM/DL (32-36); Mean Corpuscular Hemoglobin 27 PG (27-34); Mean Corpuscular Volume 86.4 FL (87-102); Mean Platelet Volume 11.5 FL (9.6-12.0); Monocytes # 0.6 10*3/uL (0.11-0.8); Monocytes % 5.3 % (1.7-12.7); NRBC # 0.03 10*3/uL; Neutrophils # 10.8 10*3/uL (1.4-7.4); Neutrophils % 92.6 % (38.7-73.9); Platelet Count 88 T/CUMM (130-400); Red Blood Count 4.03 MC/CUMM (3.8-5.5); Red Cell Distribution Width 16.9 % (9.3-17.3); White Blood Count 11.7 T/CUMM (4-12)
[2019-01-09 05:48] LABS: Calcium 8.9 MG/DL (8.5-10.1); Osmolality,Calculated 296.4 MOS/KG (273-304); Potassium 3.7 MMOL/L (3.5-5.1)
[2019-01-09 06:02] LABS: Hypochromasia 1+; Lymphocytes 2 % (20-55); Microcytosis 1+; Segmented Neutrophils 96 % (50-85); Total Cells Counted 100
[2019-01-09 06:03] LABS: Target Cells Slight
[2019-01-09 06:04] LABS: Platelet Estimate Decreased
[2019-01-09] MEDS: ASPIRIN EC 81 MG TABLET PO SCH (08:59)
[2019-01-09] MEDS: METOPROLOL TARTRATE 25 MG TABLET PO SCH ×3 (08:59→22:13)
[2019-01-09] MEDS: LANSOPRAZOLE ODT 30 MG TABLET PER TUBE SCH (08:59)
[2019-01-09] MEDS ORDERED: ENOXAPARIN 80 MG/0.8 ML SYRINGE SUBCUT SCH (09:00)
[2019-01-09] MEDS ORDERED: METOPROLOL TARTRATE 25 MG TABLET PO ONE (09:27)
[2019-01-09 10:08] LABS: Albumin 3.1 G/DL (3.4-5.0); Total Protein 6.9 G/DL (6.4-8.3)
[2019-01-09 10:22] LABS: INR 1.2; PT Patient Result 13.4 SECS
[2019-01-09 15:27] LABS: Lymphocytes,Pleural Fluid 38 %; Monocytes,Pleural Fluid 14 %; Neutrophils,Pleural Fluid 48 %
[2019-01-09 15:28] LABS: RBC,Pleural Fluid 94 T/CUMM
[2019-01-09] MEDS: hydrALAZINE 10 MG TABLET PO SCH (22:13)
[2019-01-09] MEDS: SERTRALINE 25 MG TABLET PO SCH (22:14)
[2019-01-09] MEDS: ISOSORBIDE DINITRATE 20 MG TABLET PO SCH (22:14)
[2019-01-09] MEDS: ENOXAPARIN 80 MG/0.8 ML SYRINGE SUBCUT SCH (22:17)
[2019-01-10] MEDS: ALBUTEROL/IPRATROPIUM 3 ML NEB RESP TX SCH ×4 (00:22→19:22)
[2019-01-10 07:21] LABS: Basophils % 0.1 % (0.0-0.8); Hematocrit 34.3 VOL% (35.7-47.0); Hemoglobin 10.9 GM/DL (12.0-16.0); Immature Granulocytes % 0.5 %; Immature Granulocytes Absolute 0.06 #; Lymphocytes # 0.4 10*3/uL (1.4-4.0); Lymphocytes % 3.5 % (21.3-54.2); Mean Corpuscular HGB Conc 31.8 GM/DL (32-36); Mean Corpuscular Hemoglobin 27 PG (27-34); Mean Corpuscular Volume 85.8 FL (87-102); Mean Platelet Volume 11.3 FL (9.6-12.0); Monocytes # 1.1 10*3/uL (0.11-0.8); Monocytes % 10.2 % (1.7-12.7); NRBC # 0.02 10*3/uL; Neutrophils # 9.6 10*3/uL (1.4-7.4); Neutrophils % 85.7 % (38.7-73.9); Platelet Count 93 T/CUMM (130-400); Red Cell Distribution Width 16.9 % (9.3-17.3); White Blood Count 11.2 T/CUMM (4-12)
[2019-01-10 07:40] LABS: Lymphocytes 1 % (20-55); Platelet Estimate Decreased; Segmented Neutrophils 90 % (50-85); Total Cells Counted 100
[2019-01-10 07:41] LABS: Hypochromasia 1+; Microcytosis 1+
[2019-01-10] MEDS: INSULIN REGULAR 100 UNIT/ML SUBCUT SCH ×4 (08:53→21:09)
[2019-01-10 09:18] LABS: Calcium 9.1 MG/DL (8.5-10.1); Osmolality,Calculated 300.3 MOS/KG (273-304); Potassium 3.1 MMOL/L (3.5-5.1)
[2019-01-10] MEDS: ASPIRIN EC 81 MG TABLET PO SCH (09:45)
[2019-01-10] MEDS: LANSOPRAZOLE ODT 30 MG TABLET PER TUBE SCH (09:45)
[2019-01-10] MEDS: METOPROLOL TARTRATE 25 MG TABLET PO SCH ×3 (09:45→21:10)
[2019-01-10] MEDS: HYDROCORTISONE 100 MG VIAL IV SCH ×2 (09:48→21:10)
[2019-01-10] MEDS: ISOSORBIDE DINITRATE 20 MG TABLET PO SCH ×2 (14:33→21:09)
[2019-01-10] MEDS: hydrALAZINE 10 MG TABLET PO SCH ×2 (14:34→21:09)
[2019-01-10] MEDS: SERTRALINE 25 MG TABLET PO SCH (21:09)
[2019-01-10] MEDS: ENOXAPARIN 80 MG/0.8 ML SYRINGE SUBCUT SCH (21:09)
[2019-01-10] MEDS: CLORAZEPATE 3.75 MG TABLET PO PRN (21:11)
[2019-01-11] MEDS: ALBUTEROL/IPRATROPIUM 3 ML NEB RESP TX SCH ×4 (00:40→19:22)
[2019-01-11 05:29] LABS: Basophils % 0.1 % (0.0-0.8); Eosinophils % 0.1 % (0.00-10.9); Hematocrit 30.8 VOL% (35.7-47.0); Hemoglobin 9.7 GM/DL (12.0-16.0); Immature Granulocytes % 0.5 %; Immature Granulocytes Absolute 0.07 #; Lymphocytes # 0.4 10*3/uL (1.4-4.0); Lymphocytes % 2.9 % (21.3-54.2); Mean Corpuscular HGB Conc 31.5 GM/DL (32-36); Mean Corpuscular Hemoglobin 27 PG (27-34); Mean Platelet Volume 11.3 FL (9.6-12.0); Monocytes % 6.5 % (1.7-12.7); Neutrophils # 13.4 10*3/uL (1.4-7.4); Neutrophils % 89.9 % (38.7-73.9); Platelet Count 87 T/CUMM (130-400); Red Blood Count 3.58 MC/CUMM (3.8-5.5); Red Cell Distribution Width 16.5 % (9.3-17.3)
[2019-01-11 05:31] LABS: White Blood Count 14.9 T/CUMM (4-12)
[2019-01-11 05:47] LABS: Calcium 8.4 MG/DL (8.5-10.1); Osmolality,Calculated 286.5 MOS/KG (273-304); Potassium 2.9 MMOL/L (3.5-5.1)
[2019-01-11 06:05] LABS: Eosinophils 1 % (0-10); Lymphocytes 4 % (20-55); Segmented Neutrophils 88 % (50-85); Total Cells Counted 100
[2019-01-11 06:06] LABS: Hypochromasia 1+; Microcytosis 1+; Platelet Estimate Decreased
[2019-01-11] MEDS ORDERED: POTASSIUM CHLORIDE 20 MEQ TABLET PO PRN (07:38)
[2019-01-11] MEDS ORDERED: POTASSIUM CHLORIDE 20 MEQ TABLET PO ONE (07:49)
[2019-01-11] MEDS: LANSOPRAZOLE ODT 30 MG TABLET PER TUBE SCH (09:01)
[2019-01-11] MEDS: METOPROLOL TARTRATE 25 MG TABLET PO SCH ×3 (09:01→22:40)
[2019-01-11] MEDS: hydrALAZINE 10 MG TABLET PO SCH ×2 (09:01→22:37)
[2019-01-11] MEDS: ASPIRIN EC 81 MG TABLET PO SCH (09:02)
[2019-01-11] MEDS: ISOSORBIDE DINITRATE 20 MG TABLET PO SCH ×2 (09:02→22:37)
[2019-01-11] MEDS: HYDROCORTISONE 100 MG VIAL IV SCH (09:41)
[2019-01-11] MEDS: INSULIN REGULAR 100 UNIT/ML SUBCUT SCH ×4 (09:45→22:43)
[2019-01-11] MEDS ORDERED: HYDROCORTISONE 100 MG VIAL IV SCH (14:01)
[2019-01-11] MEDS: ENOXAPARIN 80 MG/0.8 ML SYRINGE SUBCUT SCH (22:37)
[2019-01-11] MEDS: SERTRALINE 25 MG TABLET PO SCH (22:41)
[2019-01-12] MEDS: HYDROCORTISONE 100 MG VIAL IV SCH ×3 (00:24→21:31)
[2019-01-12] MEDS: ALBUTEROL/IPRATROPIUM 3 ML NEB RESP TX SCH ×4 (00:58→19:33)
[2019-01-12 04:53] LABS: Basophils % 0.1 % (0.0-0.8); Eosinophils % 0.3 % (0.00-10.9); Hematocrit 26.9 VOL% (35.7-47.0); Hemoglobin 8.5 GM/DL (12.0-16.0); Immature Granulocytes % 0.6 %; Immature Granulocytes Absolute 0.08 #; Lymphocytes # 0.5 10*3/uL (1.4-4.0); Lymphocytes % 3.6 % (21.3-54.2); Mean Corpuscular HGB Conc 31.6 GM/DL (32-36); Mean Corpuscular Hemoglobin 28 PG (27-34); Mean Corpuscular Volume 87.1 FL (87-102); Mean Platelet Volume 11.6 FL (9.6-12.0); Monocytes # 1.3 10*3/uL (0.11-0.8); Monocytes % 10.5 % (1.7-12.7); Neutrophils # 10.6 10*3/uL (1.4-7.4); Neutrophils % 84.9 % (38.7-73.9); Platelet Count 117 T/CUMM (130-400); Red Blood Count 3.09 MC/CUMM (3.8-5.5); Red Cell Distribution Width 16.3 % (9.3-17.3); White Blood Count 12.5 T/CUMM (4-12)
[2019-01-12 05:14] LABS: Calcium 8.6 MG/DL (8.5-10.1); Osmolality,Calculated 287.5 MOS/KG (273-304); Potassium 3.1 MMOL/L (3.5-5.1)
[2019-01-12 05:49] LABS: Anisocytosis 1+; Hypochromasia 1+; Lymphocytes 4 % (20-55); Microcytosis 1+; Ovalocytes Slight; Segmented Neutrophils 89 % (50-85); Total Cells Counted 100
[2019-01-12 05:50] LABS: Platelet Estimate Adequate
[2019-01-12] MEDS ORDERED: SODIUM CHLORIDE 0.9% 1,000 ML IV PRN (07:35)
[2019-01-12] MEDS: INSULIN REGULAR 100 UNIT/ML SUBCUT SCH ×4 (08:40→21:28)
[2019-01-12] MEDS ORDERED: POTASSIUM CHLORIDE 20 MEQ TABLET PO ONE (08:41)
[2019-01-12] MEDS: ASPIRIN EC 81 MG TABLET PO SCH (09:41)
[2019-01-12] MEDS: hydrALAZINE 10 MG TABLET PO SCH ×2 (09:41→21:31)
[2019-01-12] MEDS: ISOSORBIDE DINITRATE 20 MG TABLET PO SCH ×2 (09:41→21:31)
[2019-01-12] MEDS: METOPROLOL TARTRATE 25 MG TABLET PO SCH ×3 (09:41→21:31)
[2019-01-12] MEDS: PANTOPRAZOLE 40 MG TABLET PO SCH (10:00)
[2019-01-12] MEDS: LANSOPRAZOLE ODT 30 MG TABLET PER TUBE SCH (10:04)
[2019-01-12 11:32] LABS: Hematocrit 26.4 VOL% (35.7-47.0); Hemoglobin 8.4 GM/DL (12.0-16.0)
[2019-01-12 15:59] LABS: Hematocrit 25.6 VOL% (35.7-47.0); Hemoglobin 8.1 GM/DL (12.0-16.0)
[2019-01-12 20:09] LABS: Hematocrit 25.6 VOL% (35.7-47.0); Hemoglobin 8.1 GM/DL (12.0-16.0)
[2019-01-12] MEDS: SERTRALINE 25 MG TABLET PO SCH (21:31)
[2019-01-12 23:33] LABS: Hematocrit 27.2 VOL% (35.7-47.0); Hemoglobin 8.4 GM/DL (12.0-16.0)
[2019-01-12] MEDS: CLORAZEPATE 3.75 MG TABLET PO PRN (23:45)
[2019-01-12] MEDS: ACETAMINOPHEN 325 MG TABLET PO PRN (23:45)
[2019-01-13] MEDS: ALBUTEROL/IPRATROPIUM 3 ML NEB RESP TX SCH ×4 (01:10→19:11)
[2019-01-13 05:42] LABS: Eosinophils % 0.1 % (0.00-10.9); Hematocrit 26.2 VOL% (35.7-47.0); Immature Granulocytes % 0.6 %; Immature Granulocytes Absolute 0.09 #; Lymphocytes # 0.6 10*3/uL (1.4-4.0); Lymphocytes % 3.8 % (21.3-54.2); Mean Corpuscular HGB Conc 30.5 GM/DL (32-36); Mean Corpuscular Hemoglobin 27 PG (27-34); Mean Corpuscular Volume 89.1 FL (87-102); Mean Platelet Volume 11.5 FL (9.6-12.0); Monocytes # 1.6 10*3/uL (0.11-0.8); Monocytes % 10.9 % (1.7-12.7); Neutrophils # 12.3 10*3/uL (1.4-7.4); Neutrophils % 84.6 % (38.7-73.9); Platelet Count 152 T/CUMM (130-400); Red Blood Count 2.94 MC/CUMM (3.8-5.5); Red Cell Distribution Width 16.7 % (9.3-17.3); White Blood Count 14.5 T/CUMM (4-12)
[2019-01-13 05:43] LABS: Hematocrit 25.6 VOL% (35.7-47.0)
[2019-01-13 05:55] LABS: Osmolality,Calculated 293.3 MOS/KG (273-304); Potassium 3.5 MMOL/L (3.5-5.1)
[2019-01-13 06:24] LABS: Lymphocytes 4 % (20-55); Platelet Estimate Adequate; Polychromasia Few; Segmented Neutrophils 90 % (50-85); Total Cells Counted 100
[2019-01-13] MEDS: INSULIN REGULAR 100 UNIT/ML SUBCUT SCH ×4 (07:54→21:23)
[2019-01-13] MEDS: ISOSORBIDE DINITRATE 20 MG TABLET PO SCH ×3 (08:49→21:23)
[2019-01-13] MEDS: PANTOPRAZOLE 40 MG TABLET PO SCH (08:49)
[2019-01-13] MEDS: ASPIRIN EC 81 MG TABLET PO SCH (08:50)
[2019-01-13] MEDS: hydrALAZINE 10 MG TABLET PO SCH ×3 (08:50→21:22)
[2019-01-13] MEDS: METOPROLOL TARTRATE 25 MG TABLET PO SCH ×3 (08:50→21:23)
[2019-01-13] MEDS: HYDROCORTISONE 100 MG VIAL IV SCH ×2 (09:53→15:50)
[2019-01-13] MEDS ORDERED: MIDAZOLAM 2 MG/2 ML VIAL IV ONE (11:17)
[2019-01-13] MEDS ORDERED: MORPHINE 10 MG/1 ML VIAL IV ONE (11:17)
[2019-01-13] MEDS ORDERED: LIDOCAINE 1%/EPI INJ 20 ML VIAL MISC INJ ONE (11:17)
[2019-01-13] MEDS ORDERED: SODIUM CHLORIDE 0.9% 1,000 ML IV PRN (14:50)
[2019-01-13 15:39] LABS: RBC,Pleural Fluid > 100000 T/CUMM
[2019-01-13 18:22] LABS: Lymphocytes,Pleural Fluid 2 %; Neutrophils,Pleural Fluid 98 %
[2019-01-13] MEDS: SERTRALINE 25 MG TABLET PO SCH (21:23)
[2019-01-13 22:12] LABS: Hematocrit 24.8 VOL% (35.7-47.0); Hemoglobin 7.9 GM/DL (12.0-16.0)
[2019-01-14] MEDS: ALBUTEROL/IPRATROPIUM 3 ML NEB RESP TX SCH ×4 (00:20→19:42)
[2019-01-14] MEDS: HYDROCORTISONE 100 MG VIAL IV SCH ×2 (02:40→15:48)
[2019-01-14 04:14] LABS: Basophils % 0.1 % (0.0-0.8); Eosinophils % 0.2 % (0.00-10.9); Hemoglobin 7.6 GM/DL (12.0-16.0); Immature Granulocytes % 0.6 %; Lymphocytes # 0.6 10*3/uL (1.4-4.0); Lymphocytes % 3.7 % (21.3-54.2); Mean Corpuscular HGB Conc 31.7 GM/DL (32-36); Mean Corpuscular Hemoglobin 28 PG (27-34); Mean Corpuscular Volume 87.3 FL (87-102); Mean Platelet Volume 11.8 FL (9.6-12.0); Monocytes # 1.8 10*3/uL (0.11-0.8); Monocytes % 10.8 % (1.7-12.7); Neutrophils # 13.9 10*3/uL (1.4-7.4); Neutrophils % 84.6 % (38.7-73.9); Platelet Count 146 T/CUMM (130-400); Red Blood Count 2.75 MC/CUMM (3.8-5.5); Red Cell Distribution Width 16.5 % (9.3-17.3); White Blood Count 16.4 T/CUMM (4-12)
[2019-01-14 04:47] LABS: Lymphocytes 4 % (20-55); Platelet Estimate Decreased; Polychromasia Few; Segmented Neutrophils 93 % (50-85); Total Cells Counted 100
[2019-01-14 05:00] LABS: Calcium 8.5 MG/DL (8.5-10.1); Potassium 3.5 MMOL/L (3.5-5.1)
[2019-01-14] MEDS: PANTOPRAZOLE 40 MG TABLET PO SCH (10:06)
[2019-01-14] MEDS: INSULIN REGULAR 100 UNIT/ML SUBCUT SCH ×4 (10:55→20:43)
[2019-01-14] MEDS: METOPROLOL TARTRATE 25 MG TABLET PO SCH ×3 (11:22→20:42)
[2019-01-14] MEDS: hydrALAZINE 10 MG TABLET PO SCH (11:22)
[2019-01-14] MEDS: ISOSORBIDE DINITRATE 20 MG TABLET PO SCH (11:22)
[2019-01-14 14:57] LABS: Hematocrit 29.7 VOL% (35.7-47.0); Hemoglobin 9.5 GM/DL (12.0-16.0)
[2019-01-14] MEDS ORDERED: POTASSIUM CHLORIDE 10 MEQ TABLET PO ONE (15:41)
[2019-01-14] MEDS: SERTRALINE 25 MG TABLET PO SCH (20:43)
[2019-01-15] MEDS: ALBUTEROL/IPRATROPIUM 3 ML NEB RESP TX SCH ×4 (00:34→18:53)
[2019-01-15] MEDS: HYDROCORTISONE 100 MG VIAL IV SCH (04:14)
[2019-01-15 04:38] LABS: Basophils % 0.1 % (0.0-0.8); Eosinophils # 0.2 10*3/uL (0.0-0.87); Eosinophils % 1.3 % (0.00-10.9); Hematocrit 28.1 VOL% (35.7-47.0); Immature Granulocytes % 1.3 %; Lymphocytes # 0.7 10*3/uL (1.4-4.0); Lymphocytes % 4.6 % (21.3-54.2); Mean Corpuscular Hemoglobin 29 PG (27-34); Mean Corpuscular Volume 88.9 FL (87-102); Mean Platelet Volume 11.3 FL (9.6-12.0); Monocytes # 1.9 10*3/uL (0.11-0.8); Neutrophils # 12.5 10*3/uL (1.4-7.4); Neutrophils % 80.7 % (38.7-73.9); Platelet Count 180 T/CUMM (130-400); Red Blood Count 3.16 MC/CUMM (3.8-5.5); Red Cell Distribution Width 16.5 % (9.3-17.3); White Blood Count 15.5 T/CUMM (4-12)
[2019-01-15 04:54] LABS: Calcium 8.7 MG/DL (8.5-10.1); Osmolality,Calculated 288.1 MOS/KG (273-304); Potassium 3.7 MMOL/L (3.5-5.1)
[2019-01-15 05:02] LABS: Band Neutrophils 1 % (0-10); Hypochromasia 1+; Lymphocytes 4 % (20-55); Microcytosis 1+; Segmented Neutrophils 90 % (50-85); Target Cells Slight; Total Cells Counted 100
[2019-01-15 05:03] LABS: Platelet Estimate Adequate
[2019-01-15] MEDS ORDERED: DOXYCYCLINE HYCLATE INJ 200 MG, LIDOCAINE 1% INJ 20 ML in STERILE WATER INJ 40 ML INTRAPLEUR ONE (08:00)
[2019-01-15] MEDS: INSULIN REGULAR 100 UNIT/ML SUBCUT SCH ×4 (08:21→22:42)
[2019-01-15] MEDS: METOPROLOL TARTRATE 25 MG TABLET PO SCH ×3 (10:39→22:40)
[2019-01-15] MEDS: PANTOPRAZOLE 40 MG TABLET PO SCH (10:40)
[2019-01-15] MEDS: NYSTATIN/TRIAMCINOLONE CREAM 15 GM TUBE TOP SCH ×2 (16:47→23:00)
[2019-01-15] MEDS: HYDROCORTISONE 10 MG TABLET PO SCH ×2 (16:47→22:38)
[2019-01-15] MEDS: SERTRALINE 25 MG TABLET PO SCH (22:40)
[2019-01-16] MEDS: ALBUTEROL/IPRATROPIUM 3 ML NEB RESP TX SCH ×4 (01:22→20:19)
[2019-01-16 05:48] LABS: Basophils % 0.1 % (0.0-0.8); Eosinophils # 0.2 10*3/uL (0.0-0.87); Eosinophils % 1.3 % (0.00-10.9); Hemoglobin 9.6 GM/DL (12.0-16.0); Immature Granulocytes % 0.6 %; Lymphocytes # 0.6 10*3/uL (1.4-4.0); Lymphocytes % 3.3 % (21.3-54.2); Mean Corpuscular Hemoglobin 28 PG (27-34); Mean Platelet Volume 10.7 FL (9.6-12.0); Monocytes # 1.6 10*3/uL (0.11-0.8); Neutrophils % 85.7 % (38.7-73.9); Platelet Count 239 T/CUMM (130-400); Red Blood Count 3.41 MC/CUMM (3.8-5.5); Red Cell Distribution Width 17.1 % (9.3-17.3); White Blood Count 17.5 T/CUMM (4-12)
[2019-01-16 06:06] LABS: Calcium 8.6 MG/DL (8.5-10.1); Osmolality,Calculated 290.1 MOS/KG (273-304); Potassium 3.9 MMOL/L (3.5-5.1)
[2019-01-16 06:08] LABS: Hypochromasia 1+; Lymphocytes 4 % (20-55); Microcytosis 1+; Ovalocytes Slight; Platelet Estimate Adequate; Segmented Neutrophils 81 % (50-85); Total Cells Counted 100
[2019-01-16] MEDS ORDERED: ISOSORBIDE DINITRATE 10 MG TABLET PO SCH (09:00)
[2019-01-16] MEDS ORDERED: METOPROLOL TARTRATE 25 MG TABLET PO SCH (09:00)
[2019-01-16] MEDS: INSULIN REGULAR 100 UNIT/ML SUBCUT SCH ×4 (09:33→22:01)
[2019-01-16] MEDS: HYDROCORTISONE 10 MG TABLET PO SCH ×2 (09:40→22:00)
[2019-01-16] MEDS: PANTOPRAZOLE 40 MG TABLET PO SCH (09:40)
[2019-01-16] MEDS: hydrALAZINE 10 MG TABLET PO SCH ×3 (09:40→22:01)
[2019-01-16] MEDS: NYSTATIN/TRIAMCINOLONE CREAM 15 GM TUBE TOP SCH ×2 (09:41→22:01)
[2019-01-16] MEDS: SERTRALINE 25 MG TABLET PO SCH (22:01)
[2019-01-16] MEDS: ISOSORBIDE DINITRATE 20 MG TABLET PO SCH (22:01)
[2019-01-16] MEDS: METOPROLOL SUCCINATE XL 25 MG TABLET PO SCH (22:01)
[2019-01-17] MEDS: ALBUTEROL/IPRATROPIUM 3 ML NEB RESP TX SCH ×5 (02:08→23:45)
[2019-01-17 05:51] LABS: Basophils % 0.2 % (0.0-0.8); Eosinophils # 0.4 10*3/uL (0.0-0.87); Eosinophils % 2.6 % (0.00-10.9); Hematocrit 28.5 VOL% (35.7-47.0); Immature Granulocytes % 0.6 %; Immature Granulocytes Absolute 0.09 #; Lymphocytes # 0.6 10*3/uL (1.4-4.0); Lymphocytes % 3.7 % (21.3-54.2); Mean Corpuscular HGB Conc 31.6 GM/DL (32-36); Mean Corpuscular Hemoglobin 28 PG (27-34); Mean Corpuscular Volume 88.8 FL (87-102); Mean Platelet Volume 10.9 FL (9.6-12.0); Monocytes # 1.6 10*3/uL (0.11-0.8); Monocytes % 9.5 % (1.7-12.7); Neutrophils # 13.6 10*3/uL (1.4-7.4); Neutrophils % 83.4 % (38.7-73.9); Platelet Count 265 T/CUMM (130-400); Red Blood Count 3.21 MC/CUMM (3.8-5.5); Red Cell Distribution Width 17.2 % (9.3-17.3); White Blood Count 16.3 T/CUMM (4-12)
[2019-01-17 06:12] LABS: Eosinophils 3 % (0-10); Lymphocytes 3 % (20-55); Platelet Estimate Normal; Segmented Neutrophils 91 % (50-85); Total Cells Counted 100
[2019-01-17 06:17] LABS: Calcium 8.3 MG/DL (8.5-10.1); Potassium 3.9 MMOL/L (3.5-5.1)
[2019-01-17] MEDS: INSULIN REGULAR 100 UNIT/ML SUBCUT SCH ×4 (08:29→20:46)
[2019-01-17] MEDS: ISOSORBIDE DINITRATE 20 MG TABLET PO SCH ×3 (09:14→20:48)
[2019-01-17] MEDS: PANTOPRAZOLE 40 MG TABLET PO SCH (09:14)
[2019-01-17] MEDS: hydrALAZINE 10 MG TABLET PO SCH (09:14)
[2019-01-17] MEDS: METOPROLOL SUCCINATE XL 25 MG TABLET PO SCH ×2 (09:14→20:48)
[2019-01-17] MEDS: NYSTATIN/TRIAMCINOLONE CREAM 15 GM TUBE TOP SCH ×2 (09:15→20:49)
[2019-01-17] MEDS: HYDROCORTISONE 10 MG TABLET PO SCH (09:15)
[2019-01-17] MEDS ORDERED: DOXYCYCLINE HYCLATE INJ 200 MG, LIDOCAINE 1% INJ 20 ML in STERILE WATER INJ 40 ML INTRAPLEUR ONE (09:30)
[2019-01-17] MEDS ORDERED: MAGNESIUM SULF RIDER 4 GM in PREMIX 1 EACH IV PRN (10:11)
[2019-01-17] MEDS: MAGNESIUM SULF RIDER 2 GM in PREMIX 1 EACH IV PRN (12:19)
[2019-01-17] MEDS: hydrALAZINE 25 MG TABLET PO SCH ×2 (14:18→20:46)
[2019-01-17] MEDS: SERTRALINE 25 MG TABLET PO SCH (20:49)
[2019-01-18 04:31] LABS: Basophils % 0.2 % (0.0-0.8); Eosinophils # 0.5 10*3/uL (0.0-0.87); Hematocrit 28.5 VOL% (35.7-47.0); Hemoglobin 8.9 GM/DL (12.0-16.0); Immature Granulocytes % 0.6 %; Immature Granulocytes Absolute 0.09 #; Lymphocytes # 0.6 10*3/uL (1.4-4.0); Lymphocytes % 3.7 % (21.3-54.2); Mean Corpuscular HGB Conc 31.2 GM/DL (32-36); Mean Corpuscular Hemoglobin 28 PG (27-34); Mean Corpuscular Volume 89.6 FL (87-102); Mean Platelet Volume 11.1 FL (9.6-12.0); Monocytes % 12.6 % (1.7-12.7); Neutrophils # 12.8 10*3/uL (1.4-7.4); Neutrophils % 79.9 % (38.7-73.9); Platelet Count 299 T/CUMM (130-400); Red Blood Count 3.18 MC/CUMM (3.8-5.5); Red Cell Distribution Width 17.4 % (9.3-17.3)
[2019-01-18 04:54] LABS: Calcium 8.3 MG/DL (8.5-10.1); Osmolality,Calculated 294.7 MOS/KG (273-304)
[2019-01-18 05:55] LABS: Anisocytosis 1+; Eosinophils 2 % (0-10); Hypochromasia 1+; Lymphocytes 3 % (20-55); Platelet Estimate Adequate; Segmented Neutrophils 88 % (50-85); Total Cells Counted 100
[2019-01-18] MEDS: ALBUTEROL/IPRATROPIUM 3 ML NEB RESP TX SCH ×3 (07:06→19:46)
[2019-01-18] MEDS: INSULIN REGULAR 100 UNIT/ML SUBCUT SCH ×4 (08:18→21:32)
[2019-01-18] MEDS: METOPROLOL SUCCINATE XL 25 MG TABLET PO SCH ×2 (09:23→22:54)
[2019-01-18] MEDS: ISOSORBIDE DINITRATE 20 MG TABLET PO SCH ×3 (09:23→22:54)
[2019-01-18] MEDS: PANTOPRAZOLE 40 MG TABLET PO SCH (09:23)
[2019-01-18] MEDS: hydrALAZINE 25 MG TABLET PO SCH ×3 (09:24→22:52)
[2019-01-18] MEDS: NYSTATIN/TRIAMCINOLONE CREAM 15 GM TUBE TOP SCH ×2 (09:24→22:54)
[2019-01-18] MEDS: SERTRALINE 25 MG TABLET PO SCH (22:54)
[2019-01-19] MEDS: ALBUTEROL/IPRATROPIUM 3 ML NEB RESP TX SCH ×4 (01:27→19:36)
[2019-01-19 04:38] LABS: Basophils # 0.1 10*3/uL (0.0-0.2); Basophils % 0.4 % (0.0-0.8); Eosinophils # 0.2 10*3/uL (0.0-0.87); Eosinophils % 1.8 % (0.00-10.9); Hematocrit 26.4 VOL% (35.7-47.0); Hemoglobin 8.4 GM/DL (12.0-16.0); Immature Granulocytes % 0.5 %; Immature Granulocytes Absolute 0.06 #; Lymphocytes # 0.6 10*3/uL (1.4-4.0); Lymphocytes % 4.7 % (21.3-54.2); Mean Corpuscular HGB Conc 31.8 GM/DL (32-36); Mean Corpuscular Hemoglobin 28 PG (27-34); Mean Corpuscular Volume 89.2 FL (87-102); Mean Platelet Volume 10.7 FL (9.6-12.0); Monocytes # 1.8 10*3/uL (0.11-0.8); Monocytes % 13.8 % (1.7-12.7); Neutrophils # 10.4 10*3/uL (1.4-7.4); Neutrophils % 78.8 % (38.7-73.9); Platelet Count 293 T/CUMM (130-400); Red Blood Count 2.96 MC/CUMM (3.8-5.5); Red Cell Distribution Width 17.7 % (9.3-17.3); White Blood Count 13.2 T/CUMM (4-12)
[2019-01-19 05:00] LABS: Calcium 8.7 MG/DL (8.5-10.1); Osmolality,Calculated 290.8 MOS/KG (273-304); Potassium 4.3 MMOL/L (3.5-5.1)
[2019-01-19 06:36] LABS: Eosinophils 2 % (0-10); Lymphocytes 5 % (20-55); Segmented Neutrophils 78 % (50-85); Total Cells Counted 100
[2019-01-19 06:37] LABS: Hypochromasia Slight; Ovalocytes Few; Platelet Estimate Normal; Target Cells Few
[2019-01-19] MEDS: INSULIN REGULAR 100 UNIT/ML SUBCUT SCH ×4 (09:14→21:10)
[2019-01-19] MEDS: ISOSORBIDE DINITRATE 20 MG TABLET PO SCH ×3 (09:50→21:10)
[2019-01-19] MEDS: hydrALAZINE 25 MG TABLET PO SCH ×3 (09:50→21:09)
[2019-01-19] MEDS: PANTOPRAZOLE 40 MG TABLET PO SCH (09:50)
[2019-01-19] MEDS: NYSTATIN/TRIAMCINOLONE CREAM 15 GM TUBE TOP SCH ×2 (09:51→21:10)
[2019-01-19] MEDS: METOPROLOL SUCCINATE XL 25 MG TABLET PO SCH ×2 (09:51→21:10)
[2019-01-19] MEDS: MAGNESIUM SULF RIDER 2 GM in PREMIX 1 EACH IV PRN (10:51)
[2019-01-19] MEDS ORDERED: DEXTROSE 5% NACL 0.45% 1,000 ML IV SCH (11:00)
[2019-01-19] MEDS: ACETAMINOPHEN 325 MG TABLET PO PRN (14:48)
[2019-01-19] MEDS: SERTRALINE 25 MG TABLET PO SCH (21:10)
[2019-01-20] MEDS: ALBUTEROL/IPRATROPIUM 3 ML NEB RESP TX SCH ×4 (01:34→19:22)
[2019-01-20 05:37] LABS: Basophils # 0.1 10*3/uL (0.0-0.2); Basophils % 0.5 % (0.0-0.8); Eosinophils # 0.2 10*3/uL (0.0-0.87); Eosinophils % 0.9 % (0.00-10.9); Hematocrit 32.3 VOL% (35.7-47.0); Hemoglobin 10.2 GM/DL (12.0-16.0); Immature Granulocytes % 0.5 %; Immature Granulocytes Absolute 0.08 #; Lymphocytes # 0.6 10*3/uL (1.4-4.0); Lymphocytes % 3.4 % (21.3-54.2); Mean Corpuscular HGB Conc 31.6 GM/DL (32-36); Mean Corpuscular Hemoglobin 28 PG (27-34); Mean Platelet Volume 10.5 FL (9.6-12.0); Monocytes # 1.6 10*3/uL (0.11-0.8); Monocytes % 9.1 % (1.7-12.7); Neutrophils # 14.7 10*3/uL (1.4-7.4); Neutrophils % 85.6 % (38.7-73.9); Platelet Count 361 T/CUMM (130-400); Red Blood Count 3.63 MC/CUMM (3.8-5.5); Red Cell Distribution Width 17.7 % (9.3-17.3); White Blood Count 17.2 T/CUMM (4-12)
[2019-01-20 05:53] LABS: Calcium 8.9 MG/DL (8.5-10.1); Osmolality,Calculated 280.5 MOS/KG (273-304); Potassium 4.7 MMOL/L (3.5-5.1)
[2019-01-20 06:06] LABS: Eosinophils 1 % (0-10); Lymphocytes 3 % (20-55); Segmented Neutrophils 89 % (50-85); Total Cells Counted 100
[2019-01-20 06:07] LABS: Hypochromasia 1+; Microcytosis 1+; Platelet Estimate Normal
[2019-01-20] MEDS: ACETAMINOPHEN 325 MG TABLET PO PRN ×3 (06:49→15:09)
[2019-01-20] MEDS: INSULIN REGULAR 100 UNIT/ML SUBCUT SCH ×4 (08:21→20:20)
[2019-01-20] MEDS: METOPROLOL SUCCINATE XL 25 MG TABLET PO SCH ×2 (09:17→21:05)
[2019-01-20] MEDS: hydrALAZINE 25 MG TABLET PO SCH ×3 (09:17→21:05)
[2019-01-20] MEDS: ISOSORBIDE DINITRATE 20 MG TABLET PO SCH ×3 (09:17→21:06)
[2019-01-20] MEDS: PANTOPRAZOLE 40 MG TABLET PO SCH (09:18)
[2019-01-20] MEDS: NYSTATIN/TRIAMCINOLONE CREAM 15 GM TUBE TOP SCH ×2 (10:19→21:06)
[2019-01-20] MEDS ORDERED: FUROSEMIDE 80 MG TABLET PO ONE (14:39)
[2019-01-20] MEDS ORDERED: APIXABAN 2.5 MG TABLET PO SCH (21:00)
[2019-01-20] MEDS: SERTRALINE 25 MG TABLET PO SCH (21:06)
[2019-01-21] MEDS: ALBUTEROL/IPRATROPIUM 3 ML NEB RESP TX SCH ×4 (00:16→19:03)
[2019-01-21 05:05] LABS: Basophils # 0.1 10*3/uL (0.0-0.2); Basophils % 0.6 % (0.0-0.8); Eosinophils # 0.4 10*3/uL (0.0-0.87); Hematocrit 32.4 VOL% (35.7-47.0); Hemoglobin 10.1 GM/DL (12.0-16.0); Immature Granulocytes % 0.9 %; Immature Granulocytes Absolute 0.11 #; Lymphocytes # 0.7 10*3/uL (1.4-4.0); Lymphocytes % 5.9 % (21.3-54.2); Mean Corpuscular HGB Conc 31.2 GM/DL (32-36); Mean Corpuscular Hemoglobin 28 PG (27-34); Mean Platelet Volume 11.2 FL (9.6-12.0); Monocytes # 1.3 10*3/uL (0.11-0.8); Monocytes % 10.5 % (1.7-12.7); Neutrophils # 9.7 10*3/uL (1.4-7.4); Neutrophils % 79.1 % (38.7-73.9); Platelet Count 430 T/CUMM (130-400); Red Blood Count 3.64 MC/CUMM (3.8-5.5); Red Cell Distribution Width 17.7 % (9.3-17.3); White Blood Count 12.2 T/CUMM (4-12)
[2019-01-21 05:36] LABS: Calcium 8.9 MG/DL (8.5-10.1); Osmolality,Calculated 284.1 MOS/KG (273-304); Potassium 4.1 MMOL/L (3.5-5.1)
[2019-01-21] MEDS: INSULIN REGULAR 100 UNIT/ML SUBCUT SCH ×4 (07:55→21:09)
[2019-01-21] MEDS: METOPROLOL SUCCINATE XL 25 MG TABLET PO SCH ×2 (08:35→21:10)
[2019-01-21] MEDS: FUROSEMIDE 80 MG TABLET PO SCH (08:35)
[2019-01-21] MEDS: hydrALAZINE 25 MG TABLET PO SCH ×3 (08:35→21:10)
[2019-01-21] MEDS: PANTOPRAZOLE 40 MG TABLET PO SCH (08:35)
[2019-01-21] MEDS: NYSTATIN/TRIAMCINOLONE CREAM 15 GM TUBE TOP SCH ×2 (08:35→21:10)
[2019-01-21] MEDS: ISOSORBIDE DINITRATE 20 MG TABLET PO SCH ×3 (08:35→21:10)
[2019-01-21] MEDS: SERTRALINE 25 MG TABLET PO SCH (21:10)
[2019-01-22] MEDS: ALBUTEROL/IPRATROPIUM 3 ML NEB RESP TX SCH ×3 (00:26→12:57)
[2019-01-22] MEDS: INSULIN REGULAR 100 UNIT/ML SUBCUT SCH ×2 (08:10→12:33)
[2019-01-22] MEDS: PANTOPRAZOLE 40 MG TABLET PO SCH (09:21)
[2019-01-22] MEDS: hydrALAZINE 25 MG TABLET PO SCH ×2 (09:21→15:00)
[2019-01-22] MEDS: ISOSORBIDE DINITRATE 20 MG TABLET PO SCH ×2 (09:21→15:00)
[2019-01-22] MEDS: METOPROLOL SUCCINATE XL 25 MG TABLET PO SCH (09:21)
[2019-01-22] MEDS: FUROSEMIDE 80 MG TABLET PO SCH (09:21)
[2019-01-22] MEDS: NYSTATIN/TRIAMCINOLONE CREAM 15 GM TUBE TOP SCH (09:22)
[2019-01-22 12:01] VITALS: BP 90/57
== END 2019-01-22 15:27 | DRG 720 ==
LOC: N.ED 10:07 → SUATTDRO 13:13 → N.EDINP 13:13 → N.CC 14:44 → N.TELEN 01-09 16:58 → N.ICU 01-12 08:44 → N.TELES 01-15 20:05
PROVIDERS: ADMIT Internal Medicine Nephrology; ATTEND Internal Medicine

== ENCOUNTER 2019-08-16 08:12 | Inpatient (IN) ==
[2019-08-16 09:13] LABS: Basophils # 0.1 10*3/uL (0.0-0.2); Basophils % 3.5 % (0.0-0.8); Calcium 9.1 MG/DL (8.5-10.1); Eosinophils # 0.2 10*3/uL (0.0-0.87); Eosinophils % 4.6 % (0.00-10.9); Hematocrit 46.9 VOL% (35.7-47.0); Hemoglobin 14.8 GM/DL (12.0-16.0); Immature Granulocytes % 0.5 %; Immature Granulocytes Absolute 0.02 #; Lymphocytes # 0.7 10*3/uL (1.4-4.0); Lymphocytes % 18.9 % (21.3-54.2); Mean Corpuscular HGB Conc 31.6 GM/DL (32-36); Mean Corpuscular Volume 84.7 FL (87-102); Mean Platelet Volume 8.9 FL (9.6-12.0); Monocytes % 16.8 % (1.7-12.7); Neutrophils % 55.7 % (38.7-73.9); Osmolality,Calculated 280.7 MOS/KG (273-304); Platelet Count 371 T/CUMM (130-400); Red Blood Count 5.54 MC/CUMM (3.8-5.5); Red Cell Distribution Width 21.7 % (9.3-17.3); White Blood Count 3.7 T/CUMM (4-12)
[2019-08-16] MEDS ORDERED: DIPH/TET/ACEL PERT BOOSTER VACCINE 0.5 ML VIAL IM ONE (09:38)
[2019-08-16 09:51] LABS: Atypical Lymphocytes Few; Eosinophils 3 % (0-10); Hypochromasia 1+; Lymphocytes 25 % (20-55); Microcytosis 1+; Polychromasia Slight; Segmented Neutrophils 59 % (50-85); Total Cells Counted 100
[2019-08-16 09:52] LABS: Burr Cells Few; Platelet Estimate Increased; Schistocytes Slight
[2019-08-16 10:00] LABS: INR 1.1; PT Patient Result 11.8 SECS (9.6-12.2)
[2019-08-16 10:09] LABS: Bilirubin,Total 1.1 MG/DL (0.2-1.0); Calcium 8.7 MG/DL (8.5-10.1); Osmolality,Calculated 280.7 MOS/KG (273-304)
[2019-08-16 10:29] LABS: Apearance,Urine CLOUDY (Clear); Bacteria,Urine Occasional /HPF (Few); Bilirubin,Urine Negative (Negative); Blood, Urine Negative (Negative); Glucose,Urine (UA) Negative (Negative); Ketones,Urine Negative (Negative); Mucus,Urine Occasional /LPF (Occasional); Nitrite,Urine Negative (Negative); Protein,Urine 30 MG/DL; RBC,Urine 1 /HPF (0-4); Squamous Epithelial Cell,Urine Many /HPF (0-10); Urine Color Amber (Yellow); Urine Specific Gravity 1.029 (1.001-1.035); WBC,Urine 18 /HPF (0-6)
[2019-08-16 10:41] LABS: Barbiturates Screen,Urine Negative (Negative); Benzodiazepines Screen,Urine Negative (Negative); Cannabinoid Screen,Urine Negative (Negative); Opiate Screen,Urine Negative (Negative); Phencyclidine Screen,Urine Negative (Negative)
[2019-08-16] MEDS ORDERED: ACETAMINOPHEN 325 MG TABLET PO PRN (12:06)
[2019-08-16] MEDS ORDERED: ONDANSETRON 4 MG/2 ML VIAL IV PRN (12:06)
[2019-08-16] MEDS ORDERED: SODIUM CHLORIDE 0.9% 100 ML IV ONE (13:07)
[2019-08-16] MEDS: cefTRIAXone 1,000 MG in SYRINGE 1 EACH IV SCH (13:20)
[2019-08-16] MEDS: VANCOMYCIN INJ 1,000 MG in SODIUM CHLORIDE 0.9% 250 ML IV SCH (15:56)
[2019-08-17 04:56] LABS: Basophils # 0.1 10*3/uL (0.0-0.2); Basophils % 2.3 % (0.0-0.8); Eosinophils # 0.1 10*3/uL (0.0-0.87); Hematocrit 42.8 VOL% (35.7-47.0); Hemoglobin 13.3 GM/DL (12.0-16.0); Immature Granulocytes % 0.2 %; Immature Granulocytes Absolute 0.01 #; Lymphocytes # 0.8 10*3/uL (1.4-4.0); Lymphocytes % 16.9 % (21.3-54.2); Mean Corpuscular HGB Conc 31.1 GM/DL (32-36); Mean Corpuscular Volume 84.8 FL (87-102); Mean Platelet Volume 9.1 FL (9.6-12.0); Monocytes % 22.5 % (1.7-12.7); Neutrophils % 55.1 % (38.7-73.9); Platelet Count 370 T/CUMM (130-400); Red Blood Count 5.05 MC/CUMM (3.8-5.5); Red Cell Distribution Width 21.3 % (9.3-17.3); White Blood Count 4.7 T/CUMM (4-12)
[2019-08-17 05:39] LABS: Calcium 8.6 MG/DL (8.5-10.1); Osmolality,Calculated 280.5 MOS/KG (273-304); Risk Ratio 2.14; Thyroid Stimulating Hormone 2.43 uIU/ml (0.358-3.74); VLDL CHOLESTEROL 10.8 MG/DL
[2019-08-17 06:04] LABS: Anisocytosis 1+; Band Neutrophils 1 % (0-10); Eosinophils 3 % (0-10); Lymphocytes 24 % (20-55); Platelet Estimate Normal; Segmented Neutrophils 57 % (50-85); Total Cells Counted 100
[2019-08-17] MEDS: PANTOPRAZOLE 40 MG TABLET PO SCH (08:26)
[2019-08-17] MEDS: VANCOMYCIN INJ 1,000 MG in SODIUM CHLORIDE 0.9% 250 ML IV SCH (08:26)
[2019-08-17] MEDS ORDERED: diphenhydrAMINE CAP 25 MG CAPSULE PO PRN (10:30)
[2019-08-17] MEDS: MORPHINE 4 MG/1 ML VIAL IV PRN (11:10)
[2019-08-17] MEDS: cefTRIAXone 1,000 MG in SYRINGE 1 EACH IV SCH (12:38)
[2019-08-17] MEDS: FUROSEMIDE 40 MG/4 ML VIAL IV SCH (15:04)
[2019-08-18] MEDS: VANCOMYCIN INJ 1,000 MG in SODIUM CHLORIDE 0.9% 250 ML IV SCH ×2 (01:51→21:28)
[2019-08-18 05:00] LABS: Basophils # 0.1 10*3/uL (0.0-0.2); Basophils % 2.1 % (0.0-0.8); Eosinophils # 0.2 10*3/uL (0.0-0.87); Eosinophils % 3.7 % (0.00-10.9); Hematocrit 38.1 VOL% (35.7-47.0); Hemoglobin 12.2 GM/DL (12.0-16.0); Immature Granulocytes % 0.7 %; Immature Granulocytes Absolute 0.03 #; Lymphocytes # 0.8 10*3/uL (1.4-4.0); Lymphocytes % 19.7 % (21.3-54.2); Mean Corpuscular Volume 83.6 FL (87-102); Mean Platelet Volume 9.4 FL (9.6-12.0); Monocytes % 20.6 % (1.7-12.7); Neutrophils % 53.2 % (38.7-73.9); Platelet Count 355 T/CUMM (130-400); Red Blood Count 4.56 MC/CUMM (3.8-5.5); Red Cell Distribution Width 21.1 % (9.3-17.3); White Blood Count 4.3 T/CUMM (4-12)
[2019-08-18 05:30] LABS: Calcium 8.8 MG/DL (8.5-10.1); Osmolality,Calculated 287.1 MOS/KG (273-304)
[2019-08-18 05:33] LABS: Eosinophils 11 % (0-10); Hypochromasia 1+; Lymphocytes 17 % (20-55); Microcytosis Slight; Platelet Estimate Adequate; Segmented Neutrophils 53 % (50-85); Total Cells Counted 100
[2019-08-18] MEDS: PANTOPRAZOLE 40 MG TABLET PO SCH (08:43)
[2019-08-18] MEDS: FUROSEMIDE 40 MG/4 ML VIAL IV SCH ×2 (08:44→15:55)
[2019-08-18] MEDS: cefTRIAXone 1,000 MG in SYRINGE 1 EACH IV SCH (12:10)
[2019-08-18] MEDS: ENOXAPARIN 40 MG/0.4 ML SYRINGE SUBCUT SCH (15:50)
[2019-08-18] MEDS: MORPHINE 4 MG/1 ML VIAL IV PRN (22:05)
[2019-08-19 05:13] LABS: Basophils # 0.1 10*3/uL (0.0-0.2); Basophils % 2.7 % (0.0-0.8); Eosinophils # 0.3 10*3/uL (0.0-0.87); Eosinophils % 6.2 % (0.00-10.9); Hematocrit 39.6 VOL% (35.7-47.0); Hemoglobin 12.5 GM/DL (12.0-16.0); Lymphocytes # 0.9 10*3/uL (1.4-4.0); Lymphocytes % 21.7 % (21.3-54.2); Mean Corpuscular HGB Conc 31.6 GM/DL (32-36); Mean Corpuscular Volume 84.6 FL (87-102); Mean Platelet Volume 9.4 FL (9.6-12.0); Monocytes % 24.1 % (1.7-12.7); Neutrophils % 45.3 % (38.7-73.9); Platelet Count 335 T/CUMM (130-400); Red Blood Count 4.68 MC/CUMM (3.8-5.5); Red Cell Distribution Width 21.2 % (9.3-17.3); White Blood Count 4.1 T/CUMM (4-12)
[2019-08-19 05:30] LABS: Calcium 8.8 MG/DL (8.5-10.1); Osmolality,Calculated 284.3 MOS/KG (273-304)
[2019-08-19 05:37] LABS: Anisocytosis 1+; Eosinophils 6 % (0-10); Hypochromasia 1+; Lymphocytes 20 % (20-55); Microcytosis 1+; Segmented Neutrophils 56 % (50-85); Total Cells Counted 100
[2019-08-19 05:38] LABS: Atypical Lymphocytes Few; Platelet Estimate Normal
[2019-08-19] MEDS: PANTOPRAZOLE 40 MG TABLET PO SCH (08:17)
[2019-08-19] MEDS: FUROSEMIDE 40 MG/4 ML VIAL IV SCH ×2 (08:21→17:53)
[2019-08-19 11:29] VITALS: BP 104/78
[2019-08-19] MEDS: cefTRIAXone 1,000 MG in SYRINGE 1 EACH IV SCH (13:13)
[2019-08-19] MEDS: ENOXAPARIN 40 MG/0.4 ML SYRINGE SUBCUT SCH (17:53)
[2019-08-19] MEDS ORDERED: CIPROFLOXACIN 500 MG TABLET PO SCH (21:00)
== END 2019-08-19 17:40 | disposition home or self-care (01) | DRG 197 ==
LOC: EDUNIT# → EDBD → N.ED 08:12 → SUATTDRO 12:06 → N.EDINP 12:06 → N.3E 14:00
PROVIDERS: ADMIT Internal Medicine; ATTEND Hospitalist

== ENCOUNTER 2019-08-29 07:23 | Inpatient (IN) ==
[2019-08-29] MEDS ORDERED: MORPHINE 4 MG/1 ML VIAL IV STA (07:39)
[2019-08-29] MEDS ORDERED: FUROSEMIDE 100 MG/10 ML VIAL IV STA (07:39)
[2019-08-29 08:11] LABS: Basophils # 0.1 10*3/uL (0.0-0.2); Basophils % 1.7 % (0.0-0.8); Eosinophils # 0.1 10*3/uL (0.0-0.87); Eosinophils % 1.5 % (0.00-10.9); Hematocrit 46.4 VOL% (35.7-47.0); Hemoglobin 14.5 GM/DL (12.0-16.0); Immature Granulocytes % 0.4 %; Immature Granulocytes Absolute 0.02 #; Lymphocytes # 0.9 10*3/uL (1.4-4.0); Lymphocytes % 16.8 % (21.3-54.2); Mean Corpuscular HGB Conc 31.3 GM/DL (32-36); Mean Corpuscular Volume 86.4 FL (87-102); Mean Platelet Volume 9.4 FL (9.6-12.0); Monocytes % 13.2 % (1.7-12.7); Neutrophils % 66.4 % (38.7-73.9); Platelet Count 338 T/CUMM (130-400); Red Blood Count 5.37 MC/CUMM (3.8-5.5); Red Cell Distribution Width 19.8 % (9.3-17.3); White Blood Count 5.2 T/CUMM (4-12)
[2019-08-29 08:24] LABS: INR 1.2; PT Patient Result 12.5 SECS (9.6-12.2); Partial Thromboplastin Time 25.3 SECS (20.8-36.0)
[2019-08-29 08:35] LABS: Albumin 3.4 G/DL (3.4-5.0); Bilirubin,Total 0.7 MG/DL (0.2-1.0); Calcium 8.9 MG/DL (8.5-10.1); Osmolality,Calculated 290.3 MOS/KG (273-304); Total Protein 7.4 G/DL (6.4-8.3)
[2019-08-29 08:52] LABS: Amorphous Crystals,Urine Occasional /HPF (Few); Apearance,Urine Slightly Hazy (Clear); Bacteria,Urine Occasional /HPF (Few); Bilirubin,Urine Negative (Negative); Blood, Urine Negative (Negative); Glucose,Urine (UA) Negative (Negative); Hyaline Casts,Urine 3 /LPF (0-3); Ketones,Urine Negative (Negative); Mucus,Urine Occasional /LPF (Occasional); Nitrite,Urine Negative (Negative); Protein,Urine 100 MG/DL; RBC,Urine 4 /HPF (0-4); Urine Color Yellow (Yellow); Urine Specific Gravity 1.009 (1.001-1.035); Urine Urobilinogen < 2.0 EU/DL (0.2-1.0); WBC,Urine 1 /HPF (0-6)
[2019-08-29] MEDS ORDERED: cefTRIAXone 1,000 MG in SODIUM CHLORIDE 0.9% 100 ML IV STA (09:27)
[2019-08-29] MEDS ORDERED: cefTRIAXone 1,000 MG in SYRINGE 1 EACH IV STA (09:29)
[2019-08-29] MEDS ORDERED: guaiFENesin/DM ER 600-30 MG TABLET PO PRN (09:57)
[2019-08-29] MEDS ORDERED: ONDANSETRON 4 MG/2 ML VIAL IV PRN (09:57)
[2019-08-29] MEDS ORDERED: ACETAMINOPHEN 325 MG TABLET PO PRN (09:57)
[2019-08-29] MEDS ORDERED: ZALEPLON 5 MG CAPSULE PO PRN (09:57)
[2019-08-29] MEDS ORDERED: PROMETHAZINE 25 MG/1 ML VIAL IM PRN (09:57)
[2019-08-29] MEDS ORDERED: DOCUSATE SODIUM 100 MG CAPSULE PO PRN (09:57)
[2019-08-29] MEDS ORDERED: diphenhydrAMINE CAP 25 MG CAPSULE PO PRN (09:57)
[2019-08-29] MEDS ORDERED: LACTULOSE 20 GM/30 ML UDCUP PO PRN (09:57)
[2019-08-29] MEDS ORDERED: HYDROmorphone 2 MG/1 ML VIAL IV PRN (10:37)
[2019-08-29] MEDS ORDERED: INFLUENZA VIRUS VACCINE 0.5 ML SYRINGE IM ONE (11:17)
[2019-08-29] MEDS: METOPROLOL SUCCINATE XL 25 MG TABLET PO SCH (12:04)
[2019-08-29] MEDS: ENOXAPARIN 40 MG/0.4 ML SYRINGE SUBCUT SCH (12:04)
[2019-08-29] MEDS ORDERED: SKIN HEALING OINT (AQUAPHOR) 50 GM TUBE TOP PRN (12:44)
[2019-08-29] MEDS: hydrALAZINE 25 MG TABLET PO SCH ×2 (15:42→22:51)
[2019-08-29] MEDS: FUROSEMIDE 40 MG/4 ML VIAL IV SCH (15:55)
[2019-08-29] MEDS: SERTRALINE 25 MG TABLET PO SCH (20:49)
[2019-08-29] MEDS: SACUBITRIL/VALSARTAN 49-51 MG TABLET PO SCH (20:49)
[2019-08-29] MEDS ORDERED: FUROSEMIDE 80 MG TABLET PO SCH (21:00)
[2019-08-29] MEDS ORDERED: CIPROFLOXACIN 500 MG TABLET PO SCH (21:00)
[2019-08-30 04:53] LABS: Basophils # 0.1 10*3/uL (0.0-0.2); Eosinophils # 0.1 10*3/uL (0.0-0.87); Eosinophils % 1.5 % (0.00-10.9); Hematocrit 43.4 VOL% (35.7-47.0); Hemoglobin 13.5 GM/DL (12.0-16.0); Immature Granulocytes % 0.2 %; Immature Granulocytes Absolute 0.01 #; Lymphocytes # 0.9 10*3/uL (1.4-4.0); Lymphocytes % 16.5 % (21.3-54.2); Mean Corpuscular HGB Conc 31.1 GM/DL (32-36); Mean Corpuscular Volume 87.1 FL (87-102); Mean Platelet Volume 9.6 FL (9.6-12.0); Monocytes % 12.7 % (1.7-12.7); Neutrophils % 67.1 % (38.7-73.9); Platelet Count 335 T/CUMM (130-400); Red Blood Count 4.98 MC/CUMM (3.8-5.5); Red Cell Distribution Width 19.5 % (9.3-17.3); White Blood Count 5.4 T/CUMM (4-12)
[2019-08-30 05:27] LABS: Calcium 8.9 MG/DL (8.5-10.1); Osmolality,Calculated 291.8 MOS/KG (273-304)
[2019-08-30] MEDS ORDERED: SPIRONOLACTONE 25 MG TABLET PO SCH (09:00)
[2019-08-30] MEDS: PANTOPRAZOLE 40 MG TABLET PO SCH (09:25)
[2019-08-30] MEDS: SPIRONOLACTONE 25 MG TABLET PO SCH (09:26)
[2019-08-30] MEDS: ASPIRIN EC 81 MG TABLET PO SCH (09:26)
[2019-08-30] MEDS: FUROSEMIDE 40 MG/4 ML VIAL IV SCH ×2 (09:29→16:03)
[2019-08-30] MEDS: hydrALAZINE 25 MG TABLET PO SCH ×3 (09:30→21:27)
[2019-08-30] MEDS: METOPROLOL SUCCINATE XL 25 MG TABLET PO SCH (09:31)
[2019-08-30] MEDS: ISOSORBIDE DINITRATE 20 MG TABLET PO SCH (09:33)
[2019-08-30] MEDS: SACUBITRIL/VALSARTAN 49-51 MG TABLET PO SCH ×2 (09:33→21:27)
[2019-08-30] MEDS: MIDODRINE 5 MG TABLET PO SCH (09:33)
[2019-08-30] MEDS: ENOXAPARIN 40 MG/0.4 ML SYRINGE SUBCUT SCH (12:26)
[2019-08-30] MEDS: SERTRALINE 25 MG TABLET PO SCH (21:27)
[2019-08-31 06:26] LABS: Calcium 9.4 MG/DL (8.5-10.1)
[2019-08-31] MEDS: hydrALAZINE 25 MG TABLET PO SCH ×4 (08:29→21:00)
[2019-08-31] MEDS: MIDODRINE 5 MG TABLET PO SCH (08:29)
[2019-08-31] MEDS: ASPIRIN EC 81 MG TABLET PO SCH (08:29)
[2019-08-31] MEDS: SPIRONOLACTONE 25 MG TABLET PO SCH (08:29)
[2019-08-31] MEDS: FUROSEMIDE 40 MG/4 ML VIAL IV SCH ×3 (08:29→17:29)
[2019-08-31] MEDS: ISOSORBIDE DINITRATE 20 MG TABLET PO SCH (08:29)
[2019-08-31] MEDS: PANTOPRAZOLE 40 MG TABLET PO SCH (08:30)
[2019-08-31] MEDS: SACUBITRIL/VALSARTAN 49-51 MG TABLET PO SCH ×2 (08:30→21:00)
[2019-08-31] MEDS: METOPROLOL SUCCINATE XL 25 MG TABLET PO SCH (08:30)
[2019-08-31] MEDS: ENOXAPARIN 40 MG/0.4 ML SYRINGE SUBCUT SCH (12:22)
[2019-08-31] MEDS: SERTRALINE 25 MG TABLET PO SCH (21:00)
[2019-09-01 05:36] LABS: Calcium 9.4 MG/DL (8.5-10.1); Osmolality,Calculated 291.7 MOS/KG (273-304)
[2019-09-01] MEDS: PANTOPRAZOLE 40 MG TABLET PO SCH (09:10)
[2019-09-01] MEDS: ISOSORBIDE DINITRATE 20 MG TABLET PO SCH (09:10)
[2019-09-01] MEDS: MIDODRINE 5 MG TABLET PO SCH (09:10)
[2019-09-01] MEDS: ASPIRIN EC 81 MG TABLET PO SCH (09:10)
[2019-09-01] MEDS: hydrALAZINE 25 MG TABLET PO SCH ×3 (09:13→20:51)
[2019-09-01] MEDS: METOPROLOL SUCCINATE XL 25 MG TABLET PO SCH (09:13)
[2019-09-01] MEDS: SACUBITRIL/VALSARTAN 49-51 MG TABLET PO SCH ×2 (09:13→20:50)
[2019-09-01] MEDS: SPIRONOLACTONE 25 MG TABLET PO SCH (09:13)
[2019-09-01] MEDS: ENOXAPARIN 40 MG/0.4 ML SYRINGE SUBCUT SCH (12:12)
[2019-09-01] MEDS: FUROSEMIDE 40 MG/4 ML VIAL IV SCH ×2 (12:19→16:41)
[2019-09-01] MEDS: SERTRALINE 25 MG TABLET PO SCH (20:50)
[2019-09-02 05:45] LABS: Basophils # 0.1 10*3/uL (0.0-0.2); Basophils % 3.2 % (0.0-0.8); Eosinophils # 0.2 10*3/uL (0.0-0.87); Eosinophils % 4.1 % (0.00-10.9); Hematocrit 39.4 VOL% (35.7-47.0); Hemoglobin 12.2 GM/DL (12.0-16.0); Immature Granulocytes % 0.2 %; Immature Granulocytes Absolute 0.01 #; Lymphocytes # 0.8 10*3/uL (1.4-4.0); Mean Corpuscular Volume 85.8 FL (87-102); Mean Platelet Volume 9.5 FL (9.6-12.0); Monocytes % 19.2 % (1.7-12.7); Neutrophils % 53.3 % (38.7-73.9); Platelet Count 310 T/CUMM (130-400); Red Blood Count 4.59 MC/CUMM (3.8-5.5); Red Cell Distribution Width 18.6 % (9.3-17.3); White Blood Count 4.1 T/CUMM (4-12)
[2019-09-02 06:07] LABS: Eosinophils 5 % (0-10); Lymphocytes 26 % (20-55); Segmented Neutrophils 57 % (50-85); Total Cells Counted 100
[2019-09-02 06:08] LABS: Hypochromasia 1+; Platelet Estimate Adequate
[2019-09-02] MEDS: SACUBITRIL/VALSARTAN 49-51 MG TABLET PO SCH ×2 (09:07→20:38)
[2019-09-02] MEDS: FUROSEMIDE 40 MG/4 ML VIAL IV SCH ×2 (09:08→15:22)
[2019-09-02] MEDS: MIDODRINE 5 MG TABLET PO SCH (09:08)
[2019-09-02] MEDS: METOPROLOL SUCCINATE XL 25 MG TABLET PO SCH (09:09)
[2019-09-02] MEDS: ASPIRIN EC 81 MG TABLET PO SCH (09:09)
[2019-09-02] MEDS: ISOSORBIDE DINITRATE 20 MG TABLET PO SCH ×3 (09:09→20:38)
[2019-09-02] MEDS: PANTOPRAZOLE 40 MG TABLET PO SCH (09:09)
[2019-09-02] MEDS: hydrALAZINE 25 MG TABLET PO SCH ×4 (09:12→20:34)
[2019-09-02] MEDS: SPIRONOLACTONE 25 MG TABLET PO SCH (09:13)
[2019-09-02] MEDS: ENOXAPARIN 40 MG/0.4 ML SYRINGE SUBCUT SCH (11:47)
[2019-09-02] MEDS ORDERED: MAGNESIUM SULF RIDER 2 GM in PREMIX 1 EACH IV ONE (13:07)
[2019-09-02] MEDS: SERTRALINE 25 MG TABLET PO SCH (20:38)
[2019-09-02] MEDS: MAGNESIUM CHLORIDE 64 MG TABLET PO SCH (20:38)
[2019-09-03 06:08] LABS: Basophils # 0.1 10*3/uL (0.0-0.2); Basophils % 2.8 % (0.0-0.8); Eosinophils # 0.1 10*3/uL (0.0-0.87); Eosinophils % 3.3 % (0.00-10.9); Hematocrit 42.6 VOL% (35.7-47.0); Hemoglobin 13.2 GM/DL (12.0-16.0); Immature Granulocytes % 0.3 %; Immature Granulocytes Absolute 0.01 #; Lymphocytes # 0.9 10*3/uL (1.4-4.0); Lymphocytes % 23.7 % (21.3-54.2); Mean Corpuscular Volume 86.1 FL (87-102); Mean Platelet Volume 9.7 FL (9.6-12.0); Monocytes % 20.4 % (1.7-12.7); Neutrophils % 49.5 % (38.7-73.9); Platelet Count 310 T/CUMM (130-400); Red Blood Count 4.95 MC/CUMM (3.8-5.5); Red Cell Distribution Width 18.5 % (9.3-17.3); White Blood Count 3.9 T/CUMM (4-12)
[2019-09-03 06:31] LABS: Eosinophils 8 % (0-10); Lymphocytes 36 % (20-55); Segmented Neutrophils 40 % (50-85); Total Cells Counted 100
[2019-09-03 06:32] LABS: Hypochromasia 1+; Platelet Estimate Adequate
[2019-09-03 06:44] LABS: Calcium 8.8 MG/DL (8.5-10.1); Osmolality,Calculated 286.3 MOS/KG (273-304)
[2019-09-03] MEDS: FUROSEMIDE 40 MG/4 ML VIAL IV SCH (08:23)
[2019-09-03] MEDS: SACUBITRIL/VALSARTAN 49-51 MG TABLET PO SCH (08:24)
[2019-09-03] MEDS: hydrALAZINE 25 MG TABLET PO SCH (08:24)
[2019-09-03] MEDS: SPIRONOLACTONE 25 MG TABLET PO SCH (08:25)
[2019-09-03] MEDS: ASPIRIN EC 81 MG TABLET PO SCH (08:25)
[2019-09-03] MEDS: MAGNESIUM CHLORIDE 64 MG TABLET PO SCH (08:25)
[2019-09-03] MEDS: ISOSORBIDE DINITRATE 20 MG TABLET PO SCH (08:25)
[2019-09-03] MEDS: PANTOPRAZOLE 40 MG TABLET PO SCH (08:26)
[2019-09-03] MEDS ORDERED: METOPROLOL SUCCINATE XL 25 MG TABLET PO SCH (09:00)
[2019-09-03 09:44] VITALS: BP 110/79
== END 2019-09-03 10:34 | disposition home or self-care (01) | DRG 194 ==
LOC: EDBD → EDUNIT# → N.ED 07:23 → N.EDINP 09:51 → N.5E 10:54